=== PATIENT | male | born 1955 | race Two or more races ===

== ENCOUNTER 2017-01-29 21:38 | Emergency (ER) | payer OTHER ==
[~2017-01-29] VITALS: Ht 162.6 cm; Wt 91.2 kg
[~2017-01-29 21:38] MED LIST: TRAMADOL HCL100 M2 ORAL
[2017-01-29] MEDS ORDERED: Acetaminophen 500mg (ES) tab ORAL ONE (22:00)
[2017-01-30] MEDS ORDERED: TYLENOL EXTRA500 MG ORAL (00:01)
[2017-01-30] MEDS ORDERED: TRUFORM COMPRE1 EAC1 MC (00:01)
[2017-01-30 00:10] VITALS: BP 123/79
--- NOTE | 2017-01-30 00:14 | Emergency Room Report ---
History of Present Illness General Chief Complaint: Lower Extremity Injury Source: Patient Present Illness HPI 61-year-old male presents ED complaining of left ankle pain and swelling. States she's been having swelling in the ankle or some time now however he did have a mechanical trip and fall one week ago which made the swelling worse. Denies hitting his head or LOC. Pain is throbbing, 7/10, nonradiating. States pain but is able to bear weight. No other aggravating relieving factors. Denies any other associated symptoms Allergies: Coded Allergies: CODEINE (Verified Allergy, Unknown, 01/29/17) Uncoded Allergies: code (Allergy, Severe, Shortness of Breath, 01/21/14) swelling of tongue Patient History Past Medical History: DM, CVA/TIA Pertinent Family History: none Social History: Denies: smoking, alcohol use, drug use Immunizations: UTD Reviewed Nursing Documentation: PMH: Agreed, PSxH: Agreed Nursing Documentation-PMH Hx Diabetes: Yes - type 2 diabetes Hx Cerebrovascular Accident: Yes - 2012 Review of Systems All Other Systems: negative except mentioned in HPI Physical Exam Vital Signs Date Time Temp Pulse Resp B/P (MAP) Pulse Ox O2 Delivery O2 Flow Rate FiO2 01/29/17 21:42 98.1 63 20 123/79 Sp02 EP Interpretation: reviewed, normal General Appearance: no apparent distress, alert, GCS 15, non-toxic Head: normocephalic Eyes: bilateral eye normal inspection, bilateral eye PERRL ENT: normal ENT inspection Neck: normal inspection Respiratory: normal inspection Cardiovascular #1: normal inspection Gastrointestinal: normal inspection Rectal: deferred Genitourinary: no CVA tenderness Musculoskeletal: swelling - LLE Neurologic: alert, oriented x3, responsive, motor strength/tone normal, sensory intact, speech normal Psychiatric: normal inspection Skin: normal inspection Lymphatic: normal inspection Procedures Splinting Splinting : Consent: Verbal Pre-Made Type: JORGE LUIS wrap - L ankle Pre-Proc Neuro Vasc Exam: normal Post-Proc Neuro Vasc Exam: normal Patient Tolerated: Well Complications: None Medical Decision Making Diagnostic Impression: Primary Impression: Peripheral edema Additional Impression: Ankle sprain Qualified Codes: S93.402A - Sprain of unspecified ligament of left ankle, initial encounter ER Course Hospital Course 61-year-old M presents to ED complaining of L ankle swelling/ pain s/p trip and fall Differential diagnoses include: Fracture, dislocation, sprain, contusion Clinical course Patient placed on stretcher. After initial history and physical, I ordered pain medications and Xrays of L foot/ankle Xrays prelim read shows no acute fracture/dislocation. Doppler ultrasound shows no evidence of DVT placed in jorge luis wrap, given crutches Diagnosis - ankle sprain, peripheral edema Stable and discharged to home with prescription for Tylenol, compression stockings. apply ice, keep elevated. weight bear as tolerated. Followup with PMD. Return to ED if symptoms recur or worsen Other X-Ray Diagnostic Results Other X-Ray Diagnostic Results #1: X-Ray ordered: L foot # of Views/Limited Vs Complete: 3 View Indication: Pain EP Interpretation: Yes Interpretation: no dislocation, no fractures Impression: No acute disease Electronically Signed by: Electronically signed by Brennen Aldana MD Other X-Ray Diagnostic Results #2: X-Ray ordered: Left ankle # of Views/Limited Vs Complete: 3 View Indication: Pain EP Interpretation: Yes Interpretation: no dislocation, no fractures Impression: No acute disease Electronically Signed by: Electronically signed by Brennen Aldana MD CT/MRI/US Diagnostic Results CT/MRI/US Diagnostic Results : Imaging Test Ordered: venous doppler Impression no evidence of DVT in LLE Last Vital Signs Date Time Temp Pulse Resp B/P (MAP) Pulse Ox O2 Delivery O2 Flow Rate FiO2 01/29/17 21:42 98.1 63 20 123/79 Status: improved Disposition: HOME, SELF-CARE Condition: Stable Scripts Comp.stocking,Knee,Regular,Med (Truform Compression Stocking) 1 Each Each EACH , #1 Prov: BRENNEN ALDANA M.D. 01/30/17 Acetaminophen* (TYLENOL EXTRA STRENGTH*) 500 Mg Tablet 500 MG ORAL Q8H Y for Prn Headache/Temp > 101, #30 TAB 0 Refills Prov: BRENNEN ALDANA M.D. 01/30/17 Patient Instructions: Peripheral Edema BRENNEN ALDANA M.D. Jan 30, 2017 00:14
--- NOTE | 2017-01-30 10:36 | Diagnostic Imaging Report ---
Indication: Pain and swelling, status post fall Technique: 3 views left foot Comparison: none Findings: No acute fractures. No dislocations. Joint spaces are preserved. Small plantar and calcaneal spurs are noted Impression: No acute process
--- NOTE | 2017-01-30 10:37 | Diagnostic Imaging Report ---
Indication: Pain and swelling, status post fall Technique: 3 views of the left ankle Comparison: none Findings: There is soft tissue swelling medially and laterally. The joint spaces are preserved. There are small plantar and calcaneal spurs. No acute fractures. No dislocations. Impression: Soft tissue swelling No acute bony trauma
--- NOTE | 2017-02-02 11:01 | Diagnostic Imaging Report ---
APPROVED REPORT CPT Code: 99017 Present Symptoms Lower Extremity Pain: Left LEFT LEG: Venous imaging reveals a patent deep venous system. There is no evidence of thrombus within the femoral, popliteal or tibial segments. The greater saphenous vein is also within normal limits. Doppler indicates normal spontaneous flow within these segments.
== END 2017-01-30 00:09 | disposition home or self-care (01) ==
LOC: EMR 22:15
DX: R60.0 Localized edema (principal); S93.402A Sprain of unspecified ligament of left ankle, initial encounter; W01.0XXA Fall on same level from slipping, tripping and stumbling without subsequent striking against object, initial encounter; Z88.6 Allergy status to analgesic agent; E11.9 Type 2 diabetes mellitus without complications; Z86.73 Personal history of transient ischemic attack (TIA), and cerebral infarction without residual deficits
CPT/HCPCS: 93971; 99284

== ENCOUNTER 2018-05-28 23:02 | Emergency (ER) | payer SELFPAY ==
[~2018-05-28] VITALS: Ht 165.1 cm; Wt 90.7 kg
[~2018-05-28 23:02] MED LIST changes: +TRUFORM COMPRE1 EAC1 MC; +TYLENOL EXTRA500 MG ORAL
[2018-05-28] MEDS ORDERED: METFORMIN HCL500 M1 ORAL (23:17)
[2018-05-28] MEDS ORDERED: FLOMAX0.4 MG ORAL (23:17)
[2018-05-28] MEDS ORDERED: JANUVIA25 MG ORAL (23:17)
[2018-05-28] MEDS ORDERED: ATORVASTATIN CA10 MG ORAL (23:17)
[2018-05-28 23:25] VITALS: BP 174/86
--- NOTE | 2018-05-28 23:25 | NUR ---
ED Nurse Note: Patient walked to ER with his c/o abdominal pain, deny N/V/D. AAO x4, VSS at this time. will continuet o monitor.
--- NOTE | 2018-05-28 23:29 | Emergency Room Report ---
History of Present Illness General Chief Complaint: Abdominal Pain Source: Patient Present Illness HPI This is a 62-year-old male with history of high blood pressure, diabetes and hyperlipidemia. He presents with chief complaint of left lower quadrant pain. Onset this afternoon. Increasing worsen the last hour. No nausea no vomiting. Anus 9 out of 10. No radiation. No diarrhea. No fever. No hematuria. Worse with movement. Allergies: Coded Allergies: CODEINE (Verified Allergy, Unknown, 01/29/17) Uncoded Allergies: code (Allergy, Severe, Shortness of Breath, 01/21/14) swelling of tongue Patient History Past Medical History: see triage record, old chart reviewed, DM, HTN Past Surgical History: other Pertinent Family History: none Social History: Denies: smoking Immunizations: other Reviewed Nursing Documentation: PMH: Agreed; PSxH: Agreed Nursing Documentation-PMH Past Medical History: No History, Except For Hx Diabetes: Yes - type 2 diabetes Hx Cerebrovascular Accident: Yes - 2012 Review of Systems Eye: Denies: eye pain, blurred vision ENT: Denies: ear pain, nose congestion, throat swelling Respiratory: Denies: cough, shortness of breath Cardiovascular: Denies: chest pain, palpitations Gastrointestinal: Reports: abdominal pain; Denies: diarrhea, nausea, vomiting Musculoskeletal: Denies: back pain, joint pain Skin: Denies: rash Neurological: Denies: headache, numbness Endocrine: Denies: increased thirst, increased urine Hematologic/Lymphatic: Denies: easy bruising All Other Systems: negative except mentioned in HPI Physical Exam Vital Signs Date Time Temp Pulse Resp B/P (MAP) Pulse Ox O2 Delivery O2 Flow Rate FiO2 05/28/18 23:12 97.9 53 22 174/86 100 Room Air vitals with high blood pressure Sp02 EP Interpretation: reviewed, normal General Appearance: well appearing, no apparent distress, alert Head: normocephalic, atraumatic Eyes: bilateral eye PERRL, bilateral eye EOMI ENT: hearing grossly normal, normal pharynx Neck: full range of motion, supple, no meningismus Respiratory: chest non-tender, lungs clear, normal breath sounds Cardiovascular #1: regular rate, rhythm, no murmur Gastrointestinal: normal bowel sounds, no mass, no organomegaly, no bruit, non- distended, tenderness - Left lower quadrant Musculoskeletal: back normal, gait/station normal, normal range of motion Psychiatric: mood/affect normal Skin: warm/dry Medical Decision Making Diagnostic Impression: Primary Impression: Ureteral calculus, left Additional Impression: Renal insufficiency ER Course Patient presents with left flank pain and has ureteral stone. He does have some hydronephrosis. Is moderate amount of perinephric stranding. No infection on urinalysis however. Initially he was in a lot of pain and was to be admitted for pain control and urology consult. He said his pain is better wants to go home. We'll discharge home. Lab Results Impression labs with elevated creat CT/MRI/US Diagnostic Results CT/MRI/US Diagnostic Results : Imaging Test Ordered: CT abdomen and pelvis Impression read by radiologist. 5 mm obstructing left mid ureteral stone. Mild hydroureter and perinephric stranding Last Vital Signs Date Time Temp Pulse Resp B/P (MAP) Pulse Ox O2 Delivery O2 Flow Rate FiO2 05/28/18 23:12 97.9 53 22 174/86 100 Room Air Status: improved Disposition: HOME, SELF-CARE Condition: Stable Scripts Tamsulosin HCl (Flomax) 0.4 Mg Cap.er.24h 0.4 MG ORAL DAILY, #30 CAP Prov: Jerson Segura MD 05/29/18 Hydrocodone/Acetaminophen 5-325* (HYDROCODONE/ACETAMINOPHEN 5-325*) 1 Each Tablet 1 TAB ORAL Q6H PRN for For Pain, #20 TAB 0 Refills Prov: Jerson Segura MD 05/29/18 Additional Instructions: Increase fluids. Follow-up with your DrIngris in 2-3 days. You will need a referral to see a urologist. Return for fever, increasing pain, nausea and vomiting or any concern. Jerson Segura MD May 28, 2018 23:29
[2018-05-28] MEDS ORDERED: HYDROmorphone 1mg/ml Carpuject IVP ONE (23:30)
[2018-05-29 00:02] LABS: EOSINOPHILS % (AUTO) 1.5 % (0.0-3.0); HEMATOCRIT 45.8 % (42.0-52.0); HEMOGLOBIN 15.4 G/DL (14.2-18.0); LYMPHOCYTES % (AUTO) 18.5 % (20.0-45.0); MEAN CORPUSCULAR VOLUME 95 FL (80-99); MONOCYTES % (AUTO) 4.5 % (1.0-10.0); NEUTROPHILS % (AUTO) 74.5 % (45.0-75.0); PLATELET COUNT 314 K/UL (150-450); RED BLOOD COUNT 4.83 M/UL (4.70-6.10); RED CELL DISTRIBUTION WIDTH 11.1 % (11.6-14.8); WHITE BLOOD COUNT 11.2 K/UL (4.8-10.8)
[2018-05-29 00:13] LABS: ANION GAP 9 mmol/L (5-15); BLOOD UREA NITROGEN 29 mg/dL (7-18); CALCIUM 9.1 MG/DL (8.5-10.1); CARBON DIOXIDE 28 MMOL/L (21-32); CHLORIDE 104 MMOL/L (98-107); CREATININE 1.6 MG/DL (0.55-1.30); SODIUM 141 MMOL/L (136-145)
[2018-05-29 00:17] LABS: ALANINE AMINOTRANSFERASE 32 U/L (12-78); ALBUMIN 4.1 G/DL (3.4-5.0); ALBUMIN/GLOBULIN RATIO 1.1 (1.0-2.7); ALKALINE PHOSPHATASE 55 U/L (46-116); ASPARTATE AMINO TRANSFERASE 18 U/L (15-37); BILIRUBIN,TOTAL 0.7 MG/DL (0.2-1.0)
[2018-05-29 00:21] LABS: APPEARANCE,URINE CLEAR; BILIRUBIN, URINE NEGATIVE (NEGATIVE); GLUCOSE, URINE (UA) 1+ (NEGATIVE); KETONES,URINE NEGATIVE (NEGATIVE); LEUKOCYTE ESTERASE ,URINE 1+ (NEGATIVE); NITRITE,URINE NEGATIVE (NEGATIVE); PH,URINE 5 (4.5-8.0); PROTEIN,URINE 1+ (NEGATIVE); UROBILINOGEN,URINE NORMAL MG/DL (0.0-1.0)
[2018-05-29 00:22] LABS: COLOR,URINE YELLOW
[2018-05-29] MEDS ORDERED: HYDROmorphone 1mg/ml Carpuject IVP ONE (00:45)
[2018-05-29] MEDS ORDERED: Morphine Sulfate 4mg/ml Inj (IV USE ONLY) IVP ONE (01:15)
[2018-05-29] MEDS ORDERED: FLOMAX0.4 MG ORAL (01:46)
[2018-05-29] MEDS ORDERED: HYDROCODON-ACE1 EA15 ORAL (01:46)
[2018-05-29] MEDS ORDERED: CEPHALEXIN500 MG ORAL (01:48)
[2018-05-29 01:55] VITALS: BP 154/86
--- NOTE | 2018-05-29 01:56 | NUR ---
ED Nurse Note: pt cleared to be d/c per ERMD, pt discharge and aftercare instruction provided w/ prescription, pt education done via discussion and handout, pt advised to follow up with pcp or return to ed if sx worsen or new sx develop, pt verbailzed understanding and agrees with plan, vss, ambulatory w/ steady gait, iv DC and ID band removed, pt accompanied by spouse member, left w/ all belongings.
--- NOTE | 2018-05-29 12:00 | Diagnostic Imaging Report ---
Indication: Abdominal pain for 2 days Technique: Spiral acquisitions obtained through the abdomen and pelvis. No oral contrast utilized, per emergency room physician request No IV contrast utilized, per referring physician request.. Multiplanar reconstructions were generated. Total dose length product 989.95 mGycm. CTDIvol(s) 17.93 mGy. Dose reduction achieved using automated exposure control Comparison: None Findings: There is a 5 mm calculus in the proximal left ureter. This results in mild hydronephrosis and proximal hydroureter, considerable perinephric and periureteral fat stranding. No intrarenal calculi are demonstrated. No right renal or ureteral calculi, right hydronephrosis or hydroureter demonstrated. No distal left ureteral calculus demonstrated. Lack of IV contrast limits assessment of the renal parenchyma. Multiple cysts are seen in the right kidney. The bladder demonstrates mild wall thickening. Lack of IV contrast limits assessment of the other solid organs. The liver, gallbladder, bile ducts, pancreas, spleen, adrenals are unremarkable. No retroperitoneal or mesenteric mass or adenopathy. The prostate is prominent. No pelvic mass or adenopathy. There is a right inguinal hernia which contains only fat. No evidence of diverticulosis or diverticulitis. The appendix is normal. No small bowel distention. No free or loculated intraperitoneal gas or fluid. There is a small fat-containing umbilical hernia. The distal esophagus, stomach, duodenum are unremarkable. The included lung bases demonstrate groundglass opacity as well as some atelectasis and possibly consolidation. Impression: Positive for 5 mm proximal left ureteral calculus, resulting in hydronephrosis, hydroureter, and perinephric and periureteral fat stranding Bilateral pulmonary parenchymal groundglass opacities and atelectatic changes and possible consolidation Other findings as noted, including multiple right renal cysts, prominent prostate, fat-containing umbilical and right inguinal hernias This agrees with the preliminary interpretation provided overnight by [employer] teleradiology service. The CT scanner at [facility] is accredited by the [employer] and the scans are performed using protocols designed to limit radiation exposure to as low as reasonably achievable to attain images of sufficient resolution adequate for diagnostic evaluation.
[2018-05-29] MEDS ORDERED: IBUPROFEN600 MG ORAL (18:15)
== END 2018-05-29 01:55 | disposition home or self-care (01) ==
LOC: EMR 23:15
DX: N20.1 Calculus of ureter (principal); N28.9 Disorder of kidney and ureter, unspecified; E11.9 Type 2 diabetes mellitus without complications; E78.5 Hyperlipidemia, unspecified; Z88.6 Allergy status to analgesic agent; Z86.73 Personal history of transient ischemic attack (TIA), and cerebral infarction without residual deficits
CPT/HCPCS: 36415; 74176; 80053; 81003; 83690; 85025; 96361; 96374; 96375; 96376; 99284; J1170; J2270; J2405

== ENCOUNTER 2018-05-29 17:14 | Inpatient (IN) | payer SELFPAY ==
[~2018-05-29] VITALS: Ht 162.6 cm; Wt 90.3 kg
[~2018-05-29 17:14] MED LIST changes: +ATORVASTATIN CA10 MG ORAL; +CEPHALEXIN500 MG ORAL; +FLOMAX0.4 MG ORAL; +HYDROCODON-ACE1 EA15 ORAL; +JANUVIA25 MG ORAL; +METFORMIN HCL500 M1 ORAL
--- NOTE | 2018-05-29 17:25 | NUR ---
ED Nurse Note: PT WALKED IN TO ER TODAY FROM HOME. AOX4. PT C/O LEFT SIDED ABDOMINAL PAIN, 10/10, NAUSEA AND TWO EPISODES OF VOMITING X THIS AM. PT WAS SEEN LAST NIGHT AT [facility] AND WAS TOLD HE NEEDS TO FOLLOW UP WITH A UROLOGIST. PT STATES HE WAS UNABLE TO MAKE AN APPT WITH UROLOGIST.
[2018-05-29 17:28] VITALS: BP 142/76
[2018-05-29] MEDS ORDERED: Ketorolac 30mg Inj IV ONE (17:30)
[2018-05-29 17:51] LABS: BASOPHILS % (AUTO) 0.8 % (0.0-2.0); EOSINOPHILS % (AUTO) 0.2 % (0.0-3.0); HEMATOCRIT 42.8 % (42.0-52.0); HEMOGLOBIN 14.2 G/DL (14.2-18.0); LYMPHOCYTES % (AUTO) 12.7 % (20.0-45.0); MEAN CORPUSCULAR VOLUME 94 FL (80-99); MONOCYTES % (AUTO) 4.4 % (1.0-10.0); NEUTROPHILS % (AUTO) 81.9 % (45.0-75.0); PLATELET COUNT 293 K/UL (150-450); RED BLOOD COUNT 4.57 M/UL (4.70-6.10); RED CELL DISTRIBUTION WIDTH 10.6 % (11.6-14.8); WHITE BLOOD COUNT 13.6 K/UL (4.8-10.8)
[2018-05-29] MEDS ORDERED: HYDROmorphone 1mg/ml Carpuject IVP ONE (18:00)
[2018-05-29 18:11] LABS: ANION GAP 10 mmol/L (5-15); BLOOD UREA NITROGEN 27 mg/dL (7-18); CALCIUM 8.7 MG/DL (8.5-10.1); CARBON DIOXIDE 27 MMOL/L (21-32); CHLORIDE 104 MMOL/L (98-107); CREATININE 1.6 MG/DL (0.55-1.30); POTASSIUM 4.5 MMOL/L (3.5-5.1); SODIUM 140 MMOL/L (136-145)
[2018-05-29 18:15] LABS: ALANINE AMINOTRANSFERASE 26 U/L (12-78); ALBUMIN 3.7 G/DL (3.4-5.0); ALKALINE PHOSPHATASE 47 U/L (46-116); ASPARTATE AMINO TRANSFERASE 14 U/L (15-37); BILIRUBIN,TOTAL 0.9 MG/DL (0.2-1.0)
[2018-05-29] MEDS ORDERED: IBUPROFEN600 MG ORAL (18:15)
[2018-05-29 18:49] LABS: APPEARANCE,URINE CLEAR; BILIRUBIN, URINE NEGATIVE (NEGATIVE); COLOR,URINE PALE YELLOW; GLUCOSE, URINE (UA) 2+ (NEGATIVE); KETONES,URINE NEGATIVE (NEGATIVE); LEUKOCYTE ESTERASE ,URINE NEGATIVE (NEGATIVE); NITRITE,URINE NEGATIVE (NEGATIVE); PH,URINE 5 (4.5-8.0); PROTEIN,URINE NEGATIVE (NEGATIVE); UROBILINOGEN,URINE NORMAL MG/DL (0.0-1.0)
--- NOTE | 2018-05-29 19:08 | NUR ---
ED Nurse Note: REPORT GIVEN TO JAMIA ZAPIEN.
[2018-05-29] MEDS ORDERED: Tamsulosin 0.4mg cap ORAL ONE (19:15)
[2018-05-29] MEDS ORDERED: Morphine Sulfate 4mg/ml Inj (IV USE ONLY) IVP ONE (19:15)
[2018-05-29 19:43] VITALS: BP 147/78
--- NOTE | 2018-05-29 21:05 | NUR ---
ED Nurse Note: TELEPHONE REPORT GIVEN TO JAMIA GALINDO
[2018-05-29 21:19] VITALS: BP 145/78
--- NOTE | 2018-05-29 21:24 | Emergency Room Report ---
History of Present Illness General Chief Complaint: Abdominal Pain Source: Patient Present Illness HPI Patient was here yesterday with similar complaints Presents back with repeat pain increased in nature Persistent nausea vomiting unable to take any medications Denies any chest pain or shortness of breath pain is localized to the left flank and mid lower abdominal region Denies any dysuria radiation as noted above pain is 10 out of 10 patient comfortable Allergies: Coded Allergies: CODEINE (Verified Allergy, Unknown, 01/29/17) Uncoded Allergies: code (Allergy, Severe, Shortness of Breath, 01/21/14) swelling of tongue Patient History Past Medical History: see triage record Pertinent Family History: none Reviewed Nursing Documentation: PMH: Agreed; PSxH: Agreed Nursing Documentation-PMH Past Medical History: No History, Except For Hx Diabetes: Yes - type 2 diabetes Hx Cerebrovascular Accident: Yes - 2012 Review of Systems All Other Systems: negative except mentioned in HPI Physical Exam Vital Signs Date Time Temp Pulse Resp B/P (MAP) Pulse Ox O2 Delivery O2 Flow Rate FiO2 05/29/18 17:18 97.9 65 20 149/78 95 Room Air Sp02 EP Interpretation: reviewed, normal General Appearance: moderate distress Head: normocephalic, atraumatic Eyes: bilateral eye PERRL, bilateral eye EOMI ENT: hearing grossly normal, normal pharynx, TMs + canals normal, uvula midline Neck: full range of motion, supple, no meningismus, no bony tend Respiratory: lungs clear, normal breath sounds, no rhonchi, no respiratory distress, no retraction, no accessory muscle use Cardiovascular #1: normal peripheral pulses, regular rate, rhythm, no edema, no gallop, no JVD, no murmur Gastrointestinal: normal bowel sounds, non tender, soft, no mass, no organomegaly, non-distended, no guarding, no hernia, no pulsatile mass, no rebound Genitourinary: no CVA tenderness Musculoskeletal: normal inspection Neurologic: oriented x3, responsive, wire setter III-XII nml as tested, motor strength/ tone normal, sensory intact Psychiatric: mood/affect normal Skin: normal color, no rash, warm/dry, palpation normal Lymphatic: normal inspection, no adenopathy Medical Decision Making Diagnostic Impression: Primary Impression: Obstructive uropathy ER Course With the history exam and presentation, multiple differentials considered, including but not limited to appendicitis, gastritis, cholecystitis, diverticulitis Given the patient's repeat presentation objective nature of the kidney stone Patient had been recommended for admission yesterday Now presents with increased pain After repeat medications has done better however will require further inpatient care Urology consulted Labs Test 05/29/18 17:37 05/29/18 18:18 White Blood Count 13.6 K/UL (4.8-10.8) Red Blood Count 4.57 M/UL (4.70-6.10) Hemoglobin 14.2 G/DL (14.2-18.0) Hematocrit 42.8 % (42.0-52.0) Mean Corpuscular Volume 94 FL (80-99) Mean Corpuscular Hemoglobin 31.1 PG (27.0-31.0) Mean Corpuscular Hemoglobin Concent 33.2 G/DL (32.0-36.0) Red Cell Distribution Width 10.6 % (11.6-14.8) Platelet Count 293 K/UL (150-450) Mean Platelet Volume 5.3 FL (6.5-10.1) Neutrophils (%) (Auto) 81.9 % (45.0-75.0) Lymphocytes (%) (Auto) 12.7 % (20.0-45.0) Monocytes (%) (Auto) 4.4 % (1.0-10.0) Eosinophils (%) (Auto) 0.2 % (0.0-3.0) Basophils (%) (Auto) 0.8 % (0.0-2.0) Sodium Level 140 MMOL/L (136-145) Potassium Level 4.5 MMOL/L (3.5-5.1) Chloride Level 104 MMOL/L (98-107) Carbon Dioxide Level 27 MMOL/L (21-32) Anion Gap 10 mmol/L (5-15) Blood Urea Nitrogen 27 mg/dL (7-18) Creatinine 1.6 MG/DL (0.55-1.30) Estimat Glomerular Filtration Rate 43.9 mL/min (>60) Glucose Level 206 MG/DL (74-106) Calcium Level 8.7 MG/DL (8.5-10.1) Total Bilirubin 0.9 MG/DL (0.2-1.0) Aspartate Amino Transf (AST/SGOT) 14 U/L (15-37) Alanine Aminotransferase (ALT/SGPT) 26 U/L (12-78) Alkaline Phosphatase 47 U/L (46-116) Total Protein 7.3 G/DL (6.4-8.2) Albumin 3.7 G/DL (3.4-5.0) Globulin 3.6 g/dL Albumin/Globulin Ratio 1.0 (1.0-2.7) Lipase 110 U/L (73-393) Urine Color Pale yellow Urine Appearance Clear Urine pH 5 (4.5-8.0) Urine Specific [place] 1.015 (1.005-1.035) Urine Protein Negative (NEGATIVE) Urine Glucose (UA) 2+ (NEGATIVE) Urine Ketones Negative (NEGATIVE) Urine Blood 1+ (NEGATIVE) Urine Nitrite Negative (NEGATIVE) Urine Bilirubin Negative (NEGATIVE) Urine Urobilinogen Normal MG/DL (0.0-1.0) Urine Leukocyte Esterase Negative (NEGATIVE) Urine RBC 0-2 /HPF (0 - 0) Urine WBC 0 /HPF (0 - 0) Urine Squamous Epithelial Cells None /LPF (NONE/OCC) Urine Bacteria None /HPF (NONE) CT/MRI/US Diagnostic Results CT/MRI/US Diagnostic Results : Impression CT abdomen pelvis from 05/28/2018:Impression: Positive for 5 mm proximal left ureteral calculus, resulting in hydronephrosis, hydroureter, and perinephric and periureteral fat stranding Bilateral pulmonary parenchymal groundglass opacities and atelectatic changes and possible consolidation Other findings as noted, including multiple right renal cysts, prominent prostate, fat-containing umbilical and right inguinal hernias This agrees with the preliminary interpretation provided overnight by [employer] teleradiology service. Last Vital Signs Date Time Temp Pulse Resp B/P (MAP) Pulse Ox O2 Delivery O2 Flow Rate FiO2 05/29/18 21:19 98.2 90 18 145/78 100 Room Air Status: improved Disposition: ADMITTED INPATIENT Condition: Serious Referrals: ASAEL BARTON (PCP) Riley Edouard DO May 29, 2018 21:24
[2018-05-29] MEDS ORDERED: DiphenhydrAMINE 50mg/ml Inj IVP ONE (21:45)
[2018-05-29] MEDS ORDERED: LORazepam Inj 2mg/ml 1ml IV ONE (21:45)
--- NOTE | 2018-05-29 21:55 | NUR ---
ED Nurse Note: pt sent to ms unit with rosa del angel. pt is aox4, deneis pain at the moment. pt skin is intact. at bedisde. all belongings given to pt and wallet given to . pt shows no signs of distress
--- NOTE | 2018-05-29 22:00 | NUR ---
NURSE NOTES: Received patient from ER, admit from home, patient is in room 421, is at bedside, patient speaks Farsi, a little Polish, admit orders are obtained from Dr. Alfred. Oriented patient and to the room, call light is within reach, bed is in low position, locked and alarm is on. Belongings were accounted for and form has been signed. Will continue to monitor for safety and comfort.
[2018-05-29] MEDS ORDERED: Morphine Sulfate 2mg/ml Inj(IV/IM USE ONLY) IVP PRN (22:30)
[2018-05-30] VITALS (13 sets, daily range): BP systolic 103–147; BP diastolic 56–79
[2018-05-30 07:10] LABS: BASOPHILS % (AUTO) 0.5 % (0.0-2.0); EOSINOPHILS % (AUTO) 1.5 % (0.0-3.0); HEMATOCRIT 38.2 % (42.0-52.0); HEMOGLOBIN 12.9 G/DL (14.2-18.0); MEAN CORPUSCULAR VOLUME 96 FL (80-99); MONOCYTES % (AUTO) 5.4 % (1.0-10.0); NEUTROPHILS % (AUTO) 68.7 % (45.0-75.0); PLATELET COUNT 250 K/UL (150-450); RED BLOOD COUNT 3.99 M/UL (4.70-6.10); RED CELL DISTRIBUTION WIDTH 11.3 % (11.6-14.8)
[2018-05-30 07:22] LABS: ALANINE AMINOTRANSFERASE 21 U/L (12-78); ALBUMIN/GLOBULIN RATIO 0.9 (1.0-2.7); ALKALINE PHOSPHATASE 42 U/L (46-116); ANION GAP 6 mmol/L (5-15); ASPARTATE AMINO TRANSFERASE 12 U/L (15-37); BILIRUBIN,TOTAL 0.9 MG/DL (0.2-1.0); BLOOD UREA NITROGEN 25 mg/dL (7-18); CALCIUM 8.1 MG/DL (8.5-10.1); CARBON DIOXIDE 28 MMOL/L (21-32); CHLORIDE 107 MMOL/L (98-107); CREATININE 1.5 MG/DL (0.55-1.30); POTASSIUM 4.2 MMOL/L (3.5-5.1); SODIUM 141 MMOL/L (136-145)
--- NOTE | 2018-05-30 07:30 | NUR ---
HAND-OFF: Report given to Isac BLANDON.
--- NOTE | 2018-05-30 07:31 | NUR ---
NURSE NOTES: Received patient awake alert and oriented, lying comfortably in bed. IV site at right antecubital, 20 gauge, infusing 1/2 NS @ 60ml/hour. Bed at lowest level with 3 side rails up. Call light within reach. In no apparent distress at this time. Will continue to monitor.
--- NOTE | 2018-05-30 08:58 | Consultation ---
History of Present Illness General Date patient seen: May 30, 2018 Present Illness Allergies: Coded Allergies: CODEINE (Verified Allergy, Unknown, 01/29/17) Uncoded Allergies: code (Allergy, Severe, Shortness of Breath, 01/21/14) swelling of tongue Medication History Scheduled Atorvastatin Calcium* (Lipitor*), Unknown Dose ORAL BEDTIME, (Reported) Metformin Hcl* (Metformin Hcl*), Unknown Dose ORAL TWICE A DAY, (Reported) Sitagliptin* (Januvia*), Unknown Dose ORAL DAILY, (Reported) Tamsulosin HCl (Flomax), 0.4 MG ORAL DAILY, (Reported) Miscellaneous Medications Ibuprofen* (Motrin*), Unknown Dose ORAL, (Reported) Discontinued Medications Acetaminophen* (Tylenol Extra Strength*), 500 MG ORAL Q8H PRN for Prn Headache/ Temp > 101 Discontinued Reason: Therapy completed Cephalexin* (Keflex*), 500 MG ORAL TID Discontinued Reason: Therapy completed Hydrocodone/Acetaminophen 5-325* (Hydrocodone/Acetaminophen 5-325*), 1 TAB ORAL Q6H PRN for For Pain Discontinued Reason: Therapy completed Tramadol Hcl (Tramadol Hcl), 100 MG ORAL DAILY, (Reported) Discontinued Reason: Therapy completed [unknown], (Reported) Discontinued Reason: Therapy completed Durable Medical Equipment Comp.stocking,Knee,Regular,Med (Truform Compression Stocking), EACH , (DME) Patient History Healthcare decision maker Resuscitation status Full Code Advanced Directive on File No Physical Exam Last 24 Hour Vital Signs Date Time Temp Pulse Resp B/P (MAP) Pulse Ox O2 Delivery O2 Flow Rate FiO2 05/30/18 06:56 98.0 05/30/18 04:08 98.0 60 18 103/59 (74) 05/30/18 01:00 97.0 60 18 103/57 (72) 05/29/18 22:10 Room Air 05/29/18 21:55 98.2 90 18 145/78 100 Room Air 05/29/18 21:19 98.2 90 18 145/78 100 Room Air 05/29/18 19:43 98.1 05/29/18 19:43 98.1 88 18 147/78 98 Room Air 05/29/18 17:28 68 18 Room Air 05/29/18 17:28 98.1 68 18 142/76 98 Room Air 05/29/18 17:18 97.9 65 20 149/78 95 Room Air Intake and Output 05/29/18 05/30/18 19:00 07:00 Intake Total 180 ml Balance 180 ml Intake IV Total 180 ml # Voids 1 1 Laboratory Tests Test 05/29/18 17:37 05/29/18 18:18 05/30/18 05:50 White Blood Count 13.6 K/UL (4.8-10.8) H 10.0 K/UL (4.8-10.8) Red Blood Count 4.57 M/UL (4.70-6.10) L 3.99 M/UL (4.70-6.10) L Hemoglobin 14.2 G/DL (14.2-18.0) 12.9 G/DL (14.2-18.0) L Hematocrit 42.8 % (42.0-52.0) 38.2 % (42.0-52.0) L Mean Corpuscular Volume 94 FL (80-99) 96 FL (80-99) Mean Corpuscular Hemoglobin 31.1 PG (27.0-31.0) H 32.3 PG (27.0-31.0) H Mean Corpuscular Hemoglobin Concent 33.2 G/DL (32.0-36.0) 33.8 G/DL (32.0-36.0) Red Cell Distribution Width 10.6 % (11.6-14.8) L 11.3 % (11.6-14.8) L Platelet Count 293 K/UL (150-450) 250 K/UL (150-450) Mean Platelet Volume 5.3 FL (6.5-10.1) L 5.9 FL (6.5-10.1) L Neutrophils (%) (Auto) 81.9 % (45.0-75.0) H 68.7 % (45.0-75.0) Lymphocytes (%) (Auto) 12.7 % (20.0-45.0) L 24.0 % (20.0-45.0) Monocytes (%) (Auto) 4.4 % (1.0-10.0) 5.4 % (1.0-10.0) Eosinophils (%) (Auto) 0.2 % (0.0-3.0) 1.5 % (0.0-3.0) Basophils (%) (Auto) 0.8 % (0.0-2.0) 0.5 % (0.0-2.0) Sodium Level 140 MMOL/L (136-145) 141 MMOL/L (136-145) Potassium Level 4.5 MMOL/L (3.5-5.1) 4.2 MMOL/L (3.5-5.1) Chloride Level 104 MMOL/L (98-107) 107 MMOL/L (98-107) Carbon Dioxide Level 27 MMOL/L (21-32) 28 MMOL/L (21-32) Anion Gap 10 mmol/L (5-15) 6 mmol/L (5-15) Blood Urea Nitrogen 27 mg/dL (7-18) H 25 mg/dL (7-18) H Creatinine 1.6 MG/DL (0.55-1.30) H 1.5 MG/DL (0.55-1.30) H Estimat Glomerular Filtration Rate 43.9 mL/min (>60) 47.3 mL/min (>60) Glucose Level 206 MG/DL (74-106) H 121 MG/DL (74-106) H Calcium Level 8.7 MG/DL (8.5-10.1) 8.1 MG/DL (8.5-10.1) L Total Bilirubin 0.9 MG/DL (0.2-1.0) 0.9 MG/DL (0.2-1.0) Aspartate Amino Transf (AST/SGOT) 14 U/L (15-37) L 12 U/L (15-37) L Alanine Aminotransferase (ALT/SGPT) 26 U/L (12-78) 21 U/L (12-78) Alkaline Phosphatase 47 U/L (46-116) 42 U/L (46-116) L Total Protein 7.3 G/DL (6.4-8.2) 6.2 G/DL (6.4-8.2) L Albumin 3.7 G/DL (3.4-5.0) 3.0 G/DL (3.4-5.0) L Globulin 3.6 g/dL 3.2 g/dL Albumin/Globulin Ratio 1.0 (1.0-2.7) 0.9 (1.0-2.7) L Lipase 110 U/L (73-393) Urine Color Pale yellow Urine Appearance Clear Urine pH 5 (4.5-8.0) Urine Specific [place] 1.015 (1.005-1.035) Urine Protein Negative (NEGATIVE) Urine Glucose (UA) 2+ (NEGATIVE) H Urine Ketones Negative (NEGATIVE) Urine Blood 1+ (NEGATIVE) H Urine Nitrite Negative (NEGATIVE) Urine Bilirubin Negative (NEGATIVE) Urine Urobilinogen Normal MG/DL (0.0-1.0) Urine Leukocyte Esterase Negative (NEGATIVE) Urine RBC 0-2 /HPF (0 - 0) H Urine WBC 0 /HPF (0 - 0) Urine Squamous Epithelial Cells None /LPF (NONE/OCC) Urine Bacteria None /HPF (NONE) Height (Feet): 5 Height (Inches): 4.00 Weight (Pounds): 200 Medications Current Medications Medications (Trade) Dose Ordered Sig/Billy Route PRN Reason Start Time Stop Time Status Last Admin Dose Admin Dextrose (Dextrose 50%) 50 ml PRN PRN IV Hypoglycemia 05/29/18 22:30 06/28/18 22:29 Morphine Sulfate (Morphine Sulfate) 2 mg Q4H PRN IVP For Pain 05/29/18 22:30 06/05/18 22:29 05/30/18 06:18 Sodium Chloride 1,000 ml @ 60 mls/hr [id number] IV 05/29/18 22:45 06/28/18 22:44 05/29/18 23:07 Assessment/Plan Assessment/Plan (1) Left flank pain (2) Left Ureteral stone (3) Hydronephrosis seen dictated Aristides Grullon May 30, 2018 08:58
[2018-05-30] MEDS ORDERED: HYDROmorphone 1mg/ml Carpuject ONE (09:13)
[2018-05-30] MEDS: HYDROmorphone 1mg/ml Carpuject IVP PRN ×2 (09:18→21:09)
--- NOTE | 2018-05-30 10:50 | NUR ---
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
--- NOTE | 2018-05-30 11:17 | Pre-Procedure Note/Attestation ---
Pre-Procedure Note/Attestation Complete Prior to Procedure Planned Procedure: left Procedure Narrative: RIRS laser stone fragmentation stent placement left Indications for Procedure Pre-Operative Diagnosis: left ureteral stone Attestation I attest that I discussed the nature of the procedure; its benefits; risks and complications; and alternatives (and the risks and benefits of such alternatives ), prior to the procedure, with the patient (or the patient's legal sales representative sales manager). I attest that, if there was a reasonable possibility of needing a blood transfusion, the patient (or the patient's legal sales representative sales manager) was given the [facility] standardized written summary, pursuant to the Joaquín Remi Blood Safety Act ([place] Health and Safety Code # 1645, as amended). I attest that I re-evaluated the patient just prior to the surgery and that there has been no change in the patient's H&P, except as documented below: Elvis Johnson MD May 30, 2018 11:17
[2018-05-30] MEDS ORDERED: ceFAZolin sod 2 GM in NS 55 ML IVP ONE (11:30)
[2018-05-30] MEDS ORDERED: ceFAZolin 2gm/50ml Premix 50 ML IV ONE (11:30)
[2018-05-30] MEDS ORDERED: Midazolam 2mg/2ml Inj ONE (12:23)
[2018-05-30] MEDS ORDERED: fentaNYL 100 mcg/2 mL IV ONE (12:23)
[2018-05-30] MEDS ORDERED: Propofol 200mg/20ml IV ONE (12:25)
[2018-05-30] MEDS ORDERED: Lidocaine 1% MPF 10mg/ml 5ml ONE ×2 (12:25→14:23)
[2018-05-30] MEDS ORDERED: Hydromorphone 0.5mg/0.5ml inj IVP SCH (12:45)
--- NOTE | 2018-05-30 12:56 | Pre-Procedure Note/Attestation ---
Pre-Procedure Note/Attestation Complete Prior to Procedure Planned Procedure: left Procedure Narrative: left RIRS laser stone removal stent placement Indications for Procedure Pre-Operative Diagnosis: left ureteral stone Attestation I attest that I discussed the nature of the procedure; its benefits; risks and complications; and alternatives (and the risks and benefits of such alternatives ), prior to the procedure, with the patient (or the patient's legal shared services representative). I attest that, if there was a reasonable possibility of needing a blood transfusion, the patient (or the patient's legal shared services representative) was given the [facility] standardized written summary, pursuant to the Joaquín Remi Blood Safety Act ([place] Health and Safety Code # 1645, as amended). I attest that I re-evaluated the patient just prior to the surgery and that there has been no change in the patient's H&P, except as documented below: Elvis Johnson MD May 30, 2018 12:56
[2018-05-30] MEDS ORDERED: Iothalamate Meglumine 60% 30ML INJ ONE (12:58)
[2018-05-30] MEDS ORDERED: LR 1000ml ONE (13:40)
[2018-05-30] MEDS ORDERED: NS Irrig 4000ml IRRIG ONE (14:00)
--- NOTE | 2018-05-30 14:21 | Anethesia Preoperative Eval ---
Anesthesia Pre-op PMH/ROS General Date of Evaluation: May 30, 2018 Time of Evaluation: 13:41 Anesthesiologist: Manjeet ASA Score: ASA 3 Mallampati Score Class I : Soft palate, uvula, fauces, pillars visible Class II: Soft palate, uvula, fauces visible Class III: Soft palate, base of uvula visible Class IV: Only hard plate visible Mallampati Classification: Class III Surgeon: Elizabeth Diagnosis: Abd Pain Surgical Procedure: L Ureteroscopy, L Uretreral Stone Removal and Stent Placement Anesthesia History: none Family History: no anesthesia problems Allergies: Coded Allergies: CODEINE (Verified Allergy, Unknown, 01/29/17) Uncoded Allergies: code (Allergy, Severe, Shortness of Breath, 01/21/14) swelling of tongue Medications: see eMAR Patient NPO?: Yes NPO Date: May 30, 2018 NPO Time: 0000 Past Medical History Cardiovascular: Reports: HTN Neurologic/Psychiatric: Reports: CVA Endocrine: Reports: DM Other: obesity - BMI 36 Anesthesia Pre-op Phys. Exam Physician Exam Last Vital Signs Date Time Temp Pulse Resp B/P (MAP) Pulse Ox O2 Delivery O2 Flow Rate FiO2 05/30/18 09:48 98.0 05/30/18 09:00 Room Air 05/30/18 08:00 75 20 137/66 (89) 90 Constitutional: NAD Neurologic: CN 2-12 intact Cardiovascular: RRR Respiratory: CTA Gastrointestinal: S/NT/ND Airway Exam Mallampati Score: Class III MO: full ROM: limited Teeth: missing, intact Anesthesia Pre-op A/P Labs Hematology Test 05/29/18 17:37 05/30/18 05:50 White Blood Count 13.6 K/UL (4.8-10.8) H 10.0 K/UL (4.8-10.8) Red Blood Count 4.57 M/UL (4.70-6.10) L 3.99 M/UL (4.70-6.10) L Hemoglobin 14.2 G/DL (14.2-18.0) 12.9 G/DL (14.2-18.0) L Hematocrit 42.8 % (42.0-52.0) 38.2 % (42.0-52.0) L Mean Corpuscular Volume 94 FL (80-99) 96 FL (80-99) Mean Corpuscular Hemoglobin 31.1 PG (27.0-31.0) H 32.3 PG (27.0-31.0) H Mean Corpuscular Hemoglobin Concent 33.2 G/DL (32.0-36.0) 33.8 G/DL (32.0-36.0) Red Cell Distribution Width 10.6 % (11.6-14.8) L 11.3 % (11.6-14.8) L Platelet Count 293 K/UL (150-450) 250 K/UL (150-450) Mean Platelet Volume 5.3 FL (6.5-10.1) L 5.9 FL (6.5-10.1) L Neutrophils (%) (Auto) 81.9 % (45.0-75.0) H 68.7 % (45.0-75.0) Lymphocytes (%) (Auto) 12.7 % (20.0-45.0) L 24.0 % (20.0-45.0) Monocytes (%) (Auto) 4.4 % (1.0-10.0) 5.4 % (1.0-10.0) Eosinophils (%) (Auto) 0.2 % (0.0-3.0) 1.5 % (0.0-3.0) Basophils (%) (Auto) 0.8 % (0.0-2.0) 0.5 % (0.0-2.0) Chemistry Test 05/29/18 17:37 05/30/18 05:50 Sodium Level 140 MMOL/L (136-145) 141 MMOL/L (136-145) Potassium Level 4.5 MMOL/L (3.5-5.1) 4.2 MMOL/L (3.5-5.1) Chloride Level 104 MMOL/L (98-107) 107 MMOL/L (98-107) Carbon Dioxide Level 27 MMOL/L (21-32) 28 MMOL/L (21-32) Anion Gap 10 mmol/L (5-15) 6 mmol/L (5-15) Blood Urea Nitrogen 27 mg/dL (7-18) H 25 mg/dL (7-18) H Creatinine 1.6 MG/DL (0.55-1.30) H 1.5 MG/DL (0.55-1.30) H Estimat Glomerular Filtration Rate 43.9 mL/min (>60) 47.3 mL/min (>60) Glucose Level 206 MG/DL (74-106) H 121 MG/DL (74-106) H Calcium Level 8.7 MG/DL (8.5-10.1) 8.1 MG/DL (8.5-10.1) L Total Bilirubin 0.9 MG/DL (0.2-1.0) 0.9 MG/DL (0.2-1.0) Aspartate Amino Transf (AST/SGOT) 14 U/L (15-37) L 12 U/L (15-37) L Alanine Aminotransferase (ALT/SGPT) 26 U/L (12-78) 21 U/L (12-78) Alkaline Phosphatase 47 U/L (46-116) 42 U/L (46-116) L Total Protein 7.3 G/DL (6.4-8.2) 6.2 G/DL (6.4-8.2) L Albumin 3.7 G/DL (3.4-5.0) 3.0 G/DL (3.4-5.0) L Globulin 3.6 g/dL 3.2 g/dL Albumin/Globulin Ratio 1.0 (1.0-2.7) 0.9 (1.0-2.7) L Lipase 110 U/L (73-393) Pre-Antibiotics Dru Gram Ancef IV Given Within 1 Hr of Incision: Yes Time Given: 13:44 Wesly Alvarez MD May 30, 2018 14:21
--- NOTE | 2018-05-30 14:22 | Immediate Post-Op Evaluation ---
Immediate Post-Op Evalulation Immediate Post-Op Evalulation Procedure: L Ureteroscopy, L Uretreral Stone Removal and Stent Placement Date of Evaluation: May 30, 2018 Time of Evaluation: 15:23 IV Fluids: 500 LR Blood Products: 0 Estimated Blood Loss: 20 Urinary Output: 0 Blood Pressure Systolic: 144 Blood Pressure Diastolic: 72 Pulse Rate: 73 Respiratory Rate: 16 O2 Sat by Pulse Oximetry: 99 Temperature (Fahrenheit): 97.8 Pain Score (1-10): 2 Nausea: No Vomiting: No Complications 0 Patient Status: awake, reacts, patent, none Hydration Status: adequate Dru Gram Ancef IV Given Within 1 Hr of Incision: Yes Time Given: 13:44 Wesly Alvarez MD May 30, 2018 14:22
[2018-05-30] MEDS ORDERED: HYDROmorphone 1mg/ml Carpuject IVP PRN (15:00)
[2018-05-30] MEDS ORDERED: HYDROcodone/Acetamin 5/325 tab ORAL PRN (15:00)
[2018-05-30 16:22] LABS: ANION GAP 9 mmol/L (5-15); BLOOD UREA NITROGEN 23 mg/dL (7-18); CALCIUM 8.1 MG/DL (8.5-10.1); CARBON DIOXIDE 28 MMOL/L (21-32); CHLORIDE 103 MMOL/L (98-107); CREATININE 1.6 MG/DL (0.55-1.30); POTASSIUM 4.7 MMOL/L (3.5-5.1); SODIUM 140 MMOL/L (136-145)
[2018-05-30 16:35] LABS: BASOPHILS % (AUTO) 0.7 % (0.0-2.0); EOSINOPHILS % (AUTO) 0.3 % (0.0-3.0); HEMATOCRIT 41.5 % (42.0-52.0); HEMOGLOBIN 13.7 G/DL (14.2-18.0); LYMPHOCYTES % (AUTO) 14.7 % (20.0-45.0); MEAN CORPUSCULAR VOLUME 95 FL (80-99); MONOCYTES % (AUTO) 5.2 % (1.0-10.0); NEUTROPHILS % (AUTO) 79.1 % (45.0-75.0); PLATELET COUNT 268 K/UL (150-450); RED BLOOD COUNT 4.36 M/UL (4.70-6.10); RED CELL DISTRIBUTION WIDTH 11.1 % (11.6-14.8); WHITE BLOOD COUNT 12.2 K/UL (4.8-10.8)
--- NOTE | 2018-05-30 16:54 | Diagnostic Imaging Report ---
INDICATION: Pain, intraoperative TECHNIQUE: Intraoperative imaging Fluoroscopy time: 73.3 seconds Total dose: 0.93506 mGym2 Total number of images: 6 7 COMPARISON: Reference made to abdomen pelvis CT dated 05/29/2018 FINDINGS: Intraoperative images document opacification of the left ureter, subsequent placement of a nephroureteral stent IMPRESSION: Intraoperative imaging, as described
[2018-05-30] MEDS: D5 1/2NS w/KCl 20mEq 1,000 ML IV SCH (17:43)
--- NOTE | 2018-05-30 19:37 | NUR ---
HAND-OFF: Report given to JAMIA Hwang.
--- NOTE | 2018-05-30 19:45 | NUR ---
NURSE NOTES: Upon initial rounding, patient rodriguez catheter noted with bright red urine. No clots at this time. Patient is aox4, denies pain at this time. WIll continue to monitor.Left message to Dr. Johnson. Awaiting call back
[2018-05-30] MEDS ORDERED: Tamsulosin 0.4mg cap ORAL SCH (21:00)
--- NOTE | 2018-05-30 21:50 | NUR ---
NURSE NOTES: 2114 Patient c/o pain on abdomen and also right chest pain, nonradiaating, denies shortness of breath. Vitals stable 146/76 HR 76 O2 96%. Dilaudid prn given to patient. Message left to Dr. Alfred, who stated to let Dr. Rubi know. Message left to Dr. Rubi. Awaiting for orders. 2144 Patient verbalized relief from pain and stated "no pain" at this time. [address] Rubi for 2dEcho. Order carried out. Patient and family at bedside made aware.
[2018-05-30] MEDS: ceFAZolin sod 2 GM in D5W 110 ML IV SCH (22:40)
--- NOTE | 2018-05-30 22:40 | NUR ---
NURSE NOTES: Received call from Dr. Johnson, explained to regarding worsening hematuria. Per AM shift, patient was received with pinkish urine in rodriguez catheter. Now, dark red urine in the rodriguez catheter, no clots at this time. IVF infusing, patient encouraged with PO fluid intake. Per Dr. Johnson, hematuria expected on first night. May irrigate with NS if urine starts clotting. Patient and family at bedside made aware.
[2018-05-31] VITALS: BP 119/60
--- NOTE | 2018-05-31 00:01 | NUR ---
NURSE NOTES: Patient skin warm to touch, noted with low grade fever 99.1. Denies any acute distress at this time. Tylenol given prn. OFfered cooling measures, also offered to take out the blankets, refused and stated "no, its okay". Will continue to monitor.
--- NOTE | 2018-05-31 01:00 | Consultation ---
DATE OF CONSULTATION: 05/30/2018 I believe the patient was admitted to the hospital last night with left ureteral stone. CHIEF COMPLAINT: Abdominal pain. HISTORY OF PRESENT ILLNESS: The patient was in the ER twice with a proximal left ureteral stone, pain, and nausea. CT scan was done showing a 5 mm stone in the proximal left ureter with left hydronephrosis. He was admitted for observation and possible surgery. PAST MEDICAL HISTORY: Significant for type 2 diabetes and renal stone disease. FAMILY HISTORY: None. REVIEW OF SYMPTOMS: Left flank pain, otherwise asymptomatic. PHYSICAL EXAMINATION: GENERAL: He is afebrile. VITAL SIGNS: Stable. NEUROLOGICAL: Neurologically intact. LUNGS: Clear to auscultation. CARDIOVASCULAR: Regular rate and rhythm. ABDOMEN: Slight tenderness in the left upper quadrant and left CVA tenderness. No suprapubic tenderness. GENITOURINARY: Prostate exam was deferred. LABORATORY AND DIAGNOSTIC DATA: White count of 10,000, hematocrit 32. Creatinine 1.5. CT scan was reviewed with confirmation of left upper ureteral stone and hydronephrosis. ASSESSMENT AND PLAN: The patient has proximal renal stone with mild changes in renal function and possible urinary tract infection. I recommend to have retrograde intrarenal surgery with stent placement. We will consent the patient and will see if he will agree to surgery and we will try it to do today. Elvis Johnson M.D. DR: Marcus JOB#: [id number] CC:
[2018-05-31] MEDS: D5 1/2NS w/KCl 20mEq 1,000 ML IV SCH ×3 (01:03→17:32)
--- NOTE | 2018-05-31 03:24 | NUR ---
NURSE NOTES: Patient's urine color in the rodriguez intermittently changes between pink and bright red. Still no clots noted. Will continue to monitor.
[2018-05-31 04:00] VITALS: BP 142/79
[2018-05-31] MEDS: ceFAZolin sod 2 GM in D5W 110 ML IV SCH (05:03)
--- NOTE | 2018-05-31 06:30 | History and Physical Report ---
DATE OF ADMISSION: 05/29/2018 HISTORY OF PRESENT ILLNESS: The patient is being admitted for obstructive kidney stones, leukocytosis, azotemia, obstructive uropathy, NIDDM. The patient has been basically came with persistent nausea, vomiting, and flank pain, and admitted for the obstructive kidney stone. PAST MEDICAL HISTORY: Diabetes, history of CVA, BPH as well as NIDDM. ALLERGIES: Codeine. MEDICATIONS: Ibuprofen, metformin, Januvia, Flomax. FAMILY HISTORY: Noncontributory. SOCIAL HISTORY: Denies history of alcohol or illicit drugs. REVIEW OF SYSTEMS: HEENT: Denies headaches. RESPIRATORY: Denies shortness of breath. Denies cough. CARDIOVASCULAR: Denies chest pain. GASTROINTESTINAL: Reports flank pain. CENTRAL NERVOUS SYSTEM: Denies change in vision or speech pattern. PHYSICAL EXAMINATION: VITAL SIGNS: Temperature 98.9, pulse 74, blood pressure 123/66. HEENT: PERRLA. NECK: Supple. No lymphadenopathy. CHEST: Clear to auscultation. CARDIOVASCULAR: Regular rate and rhythm. No murmurs or extra sounds. GASTROINTESTINAL: Soft, nontender, and nondistended. No organomegaly. EXTREMITIES: No edema. Moves all four extremities. Sensory intact to light touch. Reflexes equal on both sides. LABORATORY DATA: WBC of 13.6, hemoglobin of 14.2, platelets 293. Sodium 140, potassium 4.5, BUN of 27, creatinine 1.6, glucose of 206. ASSESSMENT/PLAN: 1. Azotemia. 2. Acute obstructive kidney stone . 3. NIDDM. I have asked Dr. Roberts, Dr. Johnson, Dr. Tellez, Dr. Olivier Barron Dr. see the patient for the chest pain as well as for the infectious treatment and treat the patient's UTI, as well as for dehydration, and treatment of obstructive uropathy as well as for pain management. Riley Alfred M.D. DR: Huseyin JOB#: [id number] CC:
--- NOTE | 2018-05-31 06:35 | NUR ---
NURSE NOTES: Patient c/o gas pain. No PRN for gas pain. Message left to Dr. Alfred. Awaiting response.
[2018-05-31 06:36] LABS: BASOPHILS % (AUTO) 0.6 % (0.0-2.0); HEMATOCRIT 37.5 % (42.0-52.0); HEMOGLOBIN 12.5 G/DL (14.2-18.0); LYMPHOCYTES % (AUTO) 23.7 % (20.0-45.0); MEAN CORPUSCULAR VOLUME 95 FL (80-99); MONOCYTES % (AUTO) 7.6 % (1.0-10.0); NEUTROPHILS % (AUTO) 67.1 % (45.0-75.0); PLATELET COUNT 239 K/UL (150-450); RED BLOOD COUNT 3.95 M/UL (4.70-6.10); RED CELL DISTRIBUTION WIDTH 11.2 % (11.6-14.8); WHITE BLOOD COUNT 9.8 K/UL (4.8-10.8)
[2018-05-31 06:56] LABS: ANION GAP 7 mmol/L (5-15); BLOOD UREA NITROGEN 15 mg/dL (7-18); CALCIUM 7.7 MG/DL (8.5-10.1); CARBON DIOXIDE 29 MMOL/L (21-32); CHLORIDE 102 MMOL/L (98-107); POTASSIUM 3.4 MMOL/L (3.5-5.1); SODIUM 138 MMOL/L (136-145)
--- NOTE | 2018-05-31 07:39 | NUR ---
HAND-OFF: Report given to Lisseth BLANDON.
--- NOTE | 2018-05-31 08:11 | NUR ---
NURSE NOTES: Report received from JAMIA Hwang. Pt in bed, awake, fatigued, talkative, respirations regular and unlabored, at bedside asking to speak with Dr. Johnson, will call today to find out about schedule. Called Respiratory for IS teaching and humidifier for NC. bed in lowest position, call light within reach.
--- NOTE | 2018-05-31 08:17 | NUR ---
NURSE NOTES: Notified Dr. Aubrie whaley 3.4
[2018-05-31 09:00] VITALS: BP 125/70
--- NOTE | 2018-05-31 09:36 | General Progress Note ---
Assessment/Plan Assessment/Plan (1) Left flank pain (2) Left Ureteral stone (3) Hydronephrosis Patient to be continued on Dilaudid and [place] an RX for Tramadol 50mg PO 1 tab Q6-8H PRN 15 tabs will be sent to patients pharmacy of choice. D/w Dr. Roberts and he concurred. Subjective Date patient seen: May 31, 2018 Time patient seen: 08:30 - am Constitutional: Reports: weakness HEENT: Reports: no symptoms Cardiovascular: Reports: no symptoms Respiratory: Reports: no symptoms Gastrointestinal/Abdominal: Reports: no symptoms Genitourinary: Reports: pain Neurologic/Psychiatric: Reports: no symptoms Endocrine: Reports: no symptoms Hematologic/Lymphatic: Reports: no symptoms Allergies: Coded Allergies: CODEINE (Verified Allergy, Unknown, 01/29/17) Uncoded Allergies: code (Allergy, Severe, Shortness of Breath, 01/21/14) swelling of tongue Subjective Patient is walking with and is s/p uroscopy with stent placement and stone removal. continues to c/o pain which has been tolerated on the Dilaudid and [place]. Objective Last 24 Hour Vital Signs Date Time Temp Pulse Resp B/P (MAP) Pulse Ox O2 Delivery O2 Flow Rate FiO2 05/31/18 08:07 Nasal Cannula 2.0 05/31/18 08:06 98 Nasal Cannula 2.0 28 05/31/18 04:00 98.4 73 19 142/79 (100) 95 05/31/18 01:03 98.4 05/31/18 00:00 99.1 70 18 119/60 (79) 93 05/30/18 21:39 96.9 05/30/18 21:00 Nasal Cannula 2.0 05/30/18 20:00 96.9 76 18 147/76 (99) 96 05/30/18 17:29 99.3 76 16 123/67 (85) 92 05/30/18 16:28 98.9 74 16 123/66 (85) 90 05/30/18 16:05 98.0 73 14 127/75 96 Nasal Cannula 3 05/30/18 15:55 69 15 122/68 95 Nasal Cannula 3 05/30/18 15:40 62 11 127/67 98 Nasal Cannula 3 05/30/18 15:30 73 15 147/70 96 Nasal Cannula 3 05/30/18 15:22 68 13 141/69 98 Simple Mask 6 05/30/18 15:17 64 15 140/56 98 Simple Mask 6 05/30/18 15:12 97.8 70 16 144/79 98 Simple Mask 6 05/30/18 15:09 73 16 99 Intake and Output 05/30/18 05/31/18 19:00 07:00 Intake Total 1164 ml 1470 ml Output Total 1870 ml 1350 ml Balance -706 ml 120 ml Intake IV Total 1164 ml 1470 ml Output Urine Total 1850 ml 1350 ml Estimated Blood Loss 20 ml Laboratory Tests 05/30/18 15:55: White Blood Count 12.2H, Red Blood Count 4.36L, Hemoglobin 13.7L, Hematocrit 41.5L, Mean Corpuscular Volume 95, Mean Corpuscular Hemoglobin 31.5H, Mean Corpuscular Hemoglobin Concent 33.1, Red Cell Distribution Width 11.1L, Platelet Count 268, Mean Platelet Volume 5.6L, Neutrophils (%) (Auto) 79.1H, Lymphocytes (%) (Auto) 14.7L, Monocytes (%) (Auto) 5.2, Eosinophils (%) (Auto) 0.3, Basophils (%) (Auto) 0.7, Sodium Level 140, Potassium Level 4.7, Chloride Level 103, Carbon Dioxide Level 28, Anion Gap 9, Blood Urea Nitrogen 23H, Creatinine 1.6H, Estimat Glomerular Filtration Rate 43.9, Glucose Level 153H, Calcium Level 8.1L 05/31/18 04:50: White Blood Count 9.8, Red Blood Count 3.95L, Hemoglobin 12.5L, Hematocrit 37.5L , Mean Corpuscular Volume 95, Mean Corpuscular Hemoglobin 31.7H, Mean Corpuscular Hemoglobin Concent 33.3, Red Cell Distribution Width 11.2L, Platelet Count 239, Mean Platelet Volume 6.0L, Neutrophils (%) (Auto) 67.1, Lymphocytes (%) (Auto) 23.7, Monocytes (%) (Auto) 7.6, Eosinophils (%) (Auto) 1.0, Basophils (%) (Auto) 0.6, Sodium Level 138, Potassium Level 3.4L, Chloride Level 102, Carbon Dioxide Level 29, Anion Gap 7, Blood Urea Nitrogen 15, Creatinine 1.0, Estimat Glomerular Filtration Rate > 60, Glucose Level 167H, Calcium Level 7.7L Height (Feet): 5 Height (Inches): 4.00 Weight (Pounds): 199 General Appearance: no apparent distress, alert EENT: PERRL/EOMI, normal ENT inspection Neck: non-tender, normal alignment Cardiovascular: normal rate, regular rhythm Respiratory/Chest: lungs clear, normal breath sounds Abdomen: non tender, soft Extremities: non-tender Edema: trace edema Neurologic: alert, oriented x 3 Skin: warm/dry Aristides Grullon May 31, 2018 09:36
--- NOTE | 2018-05-31 10:16 | NUR ---
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
[2018-05-31 12:00] VITALS: BP 134/75
[2018-05-31] MEDS: HYDROmorphone 1mg/ml Carpuject IVP PRN ×2 (12:04→15:02)
--- NOTE | 2018-05-31 12:06 | NUR ---
NURSE NOTES: Discontinued [place] catheter, per Dr. Johnson order, removed intact. Instructed pt on need to urinate within next 6 hours, provided pt with water and urinal
--- NOTE | 2018-05-31 12:55 | Cardiology Progress Note ---
Assessment/Plan Assessment/Plan The patient is seen and examined, full consult note will be dictated shortly. Objective Last 24 Hour Vital Signs Date Time Temp Pulse Resp B/P (MAP) Pulse Ox O2 Delivery O2 Flow Rate FiO2 05/31/18 12:00 98.8 73 20 134/75 (94) 92 05/31/18 09:00 97.5 69 18 125/70 (88) 91 05/31/18 09:00 Nasal Cannula 2.0 05/31/18 08:07 Nasal Cannula 2.0 05/31/18 08:06 98 Nasal Cannula 2.0 28 05/31/18 04:00 98.4 73 19 142/79 (100) 95 05/31/18 01:03 98.4 05/31/18 00:00 99.1 70 18 119/60 (79) 93 05/30/18 21:39 96.9 05/30/18 21:00 Nasal Cannula 2.0 05/30/18 20:00 96.9 76 18 147/76 (99) 96 05/30/18 17:29 99.3 76 16 123/67 (85) 92 05/30/18 16:28 98.9 74 16 123/66 (85) 90 05/30/18 16:05 98.0 73 14 127/75 96 Nasal Cannula 3 05/30/18 15:55 69 15 122/68 95 Nasal Cannula 3 05/30/18 15:40 62 11 127/67 98 Nasal Cannula 3 05/30/18 15:30 73 15 147/70 96 Nasal Cannula 3 05/30/18 15:22 68 13 141/69 98 Simple Mask 6 05/30/18 15:17 64 15 140/56 98 Simple Mask 6 05/30/18 15:12 97.8 70 16 144/79 98 Simple Mask 6 05/30/18 15:09 73 16 99 Intake and Output 05/30/18 05/31/18 19:00 07:00 Intake Total 1164 ml 1470 ml Output Total 1870 ml 1350 ml Balance -706 ml 120 ml Intake IV Total 1164 ml 1470 ml Output Urine Total 1850 ml 1350 ml Estimated Blood Loss 20 ml Laboratory Tests Test 05/30/18 15:55 05/31/18 04:50 White Blood Count 12.2 K/UL (4.8-10.8) H 9.8 K/UL (4.8-10.8) Red Blood Count 4.36 M/UL (4.70-6.10) L 3.95 M/UL (4.70-6.10) L Hemoglobin 13.7 G/DL (14.2-18.0) L 12.5 G/DL (14.2-18.0) L Hematocrit 41.5 % (42.0-52.0) L 37.5 % (42.0-52.0) L Mean Corpuscular Volume 95 FL (80-99) 95 FL (80-99) Mean Corpuscular Hemoglobin 31.5 PG (27.0-31.0) H 31.7 PG (27.0-31.0) H Mean Corpuscular Hemoglobin Concent 33.1 G/DL (32.0-36.0) 33.3 G/DL (32.0-36.0) Red Cell Distribution Width 11.1 % (11.6-14.8) L 11.2 % (11.6-14.8) L Platelet Count 268 K/UL (150-450) 239 K/UL (150-450) Mean Platelet Volume 5.6 FL (6.5-10.1) L 6.0 FL (6.5-10.1) L Neutrophils (%) (Auto) 79.1 % (45.0-75.0) H 67.1 % (45.0-75.0) Lymphocytes (%) (Auto) 14.7 % (20.0-45.0) L 23.7 % (20.0-45.0) Monocytes (%) (Auto) 5.2 % (1.0-10.0) 7.6 % (1.0-10.0) Eosinophils (%) (Auto) 0.3 % (0.0-3.0) 1.0 % (0.0-3.0) Basophils (%) (Auto) 0.7 % (0.0-2.0) 0.6 % (0.0-2.0) Sodium Level 140 MMOL/L (136-145) 138 MMOL/L (136-145) Potassium Level 4.7 MMOL/L (3.5-5.1) 3.4 MMOL/L (3.5-5.1) L Chloride Level 103 MMOL/L (98-107) 102 MMOL/L (98-107) Carbon Dioxide Level 28 MMOL/L (21-32) 29 MMOL/L (21-32) Anion Gap 9 mmol/L (5-15) 7 mmol/L (5-15) Blood Urea Nitrogen 23 mg/dL (7-18) H 15 mg/dL (7-18) Creatinine 1.6 MG/DL (0.55-1.30) H 1.0 MG/DL (0.55-1.30) Estimat Glomerular Filtration Rate 43.9 mL/min (>60) > 60 mL/min (>60) Glucose Level 153 MG/DL (74-106) H 167 MG/DL (74-106) H Calcium Level 8.1 MG/DL (8.5-10.1) L 7.7 MG/DL (8.5-10.1) L Adriel Rubi MD May 31, 2018 12:55
--- NOTE | 2018-05-31 14:15 | NUR ---
NURSE NOTES: Pt c/o having strong pain, bladder scan done, no residue (0 ml). Dr Alfred notified
--- NOTE | 2018-05-31 14:15 | NUR ---
NURSE NOTES: Notified Dr. Alfred, pt's family does not want to take pt home yet as pt is still having 10/10 pain
--- NOTE | 2018-05-31 14:35 | 48 Hour Post Anesthesia Eval ---
Post Anesthesia Evaluation Procedure: L Ureteroscopy, L Uretreral Stone Removal and Stent Placement Date of Evaluation: May 31, 2018 Time of Evaluation: 14:34 Blood Pressure Systolic: 134 0: 74 Pulse Rate: 68 Respiratory Rate: 20 Temperature (Fahrenheit): 97.6 O2 Sat by Pulse Oximetry: 98 Airway: patent Nausea: No Vomiting: No Pain Intensity: 3 Hydration Status: adequate Cardiopulmonary Status: stable Mental Status/LOC: patient returned to baseline Follow-up Care/Observations: n/a Post-Anesthesia Complications: none Follow-up care needed: N/A Shahbaz Jamison MD May 31, 2018 14:35
--- NOTE | 2018-05-31 14:45 | NUR ---
NURSE NOTES: Spoke to pt's . Pt to be discharged home tonight. She will pick pt up, wants pt to go home with pain medication. Request medical information records. Discussed Release of information form with , will fill out and leave in pt's room to sign. is requesting that pain medication be called into their pharmacy. My Pharmacist On-Call [phone]
--- NOTE | 2018-05-31 14:45 | Consultation ---
DATE OF CONSULTATION: 05/30/2018 PAIN MANAGEMENT CONSULTATION CONSULTING PHYSICIAN: Roseanne Roberts M.D. REFERRING PHYSICIAN: Riley Alfred M.D. PHYSICIAN HELPER COORDINATOR: Monica Beatty CHIEF COMPLAINT: left-sided flank pain HISTORY OF PRESENT ILLNESS: The patient is a 63-year-old male being seen on the med/surg floor of [facility] [place]. C/o left flank pain found to have urethral stone. Waiting to be seen by urologist. Pain is severe. We were consulted so patient has adequate pain control while here in the hospital. PAST MEDICAL HISTORY: BPH PAST SURGICAL HISTORY: Denies. SOCIAL HISTORY: Denies. REVIEW OF SYSTEMS: Denies rash, fever, chills, sweating, dizziness, drowsiness, blurred vision, sore throat, or change in weight. No shortness of breath or chest pain. No nausea, vomiting, diarrhea, or blood in the stool or urine. No bowel or bladder incontinence. left flank pain. PHYSICAL EXAMINATION: VITAL SIGNS: stable HEENT: PERRLA. NECK: Range of motion is full in all directions. No tenderness. No adenopathy. LUNGS: DBS B/l ABD: tenderness to palpation. BACK: Decreased ROM EXT: UE and LE Full ROM, NO CCE. ASSESSMENT AND PLAN: The patient is a 63-year-old male with left flank pain, left ureteral stone and hydronephrosis. We will start the patient on Dilaudid 1mg IV Q3H PRN severe pain The patient was discussed with Dr. Roberts, and Dr. Roberts concurred. We will follow the patient. Thank you very much for the courtesy of this consultation. Roseanne Roberts M.D. PAULO Beatty DR: ANIL JOB#: [id number] CC: TELMA
--- NOTE | 2018-05-31 15:07 | NUR ---
NURSE NOTES: Placed 16Fr Newton per Dr. Johnson order, draining slight pink urine
--- NOTE | 2018-05-31 15:30 | NUR ---
NURSE NOTES: Spoke to [facility] [place] in place ok to DC with [facility] per Elizabeth. Dr. Alfred said to proceed with DC of pt home
[2018-05-31 16:00] VITALS: BP 157/77
--- NOTE | 2018-05-31 17:42 | NUR ---
NURSE NOTES: Notified Dr. Alfred of 's request for pt have pain meds called into pharmacy. Provided Dr. Alfred with Pharmacy name and number and pt's
--- NOTE | 2018-05-31 18:39 | NUR ---
NURSE NOTES: Dr. Alfred said to contact Aristides Grullon for pain Spoke with Aristides, he already called in Rx to pt's pharmacy
--- NOTE | 2018-05-31 19:30 | NUR ---
NURSE NOTES: Reviewed all discharge information with pt and his . Notified them of need to follow-up with Urologist in 1-2 weeks and to have sent removed in a few month. pt signed all DC paperwork. IV removed, ID band removed. will help pt dress.
[2018-05-31 20:00] VITALS: BP 149/83
--- NOTE | 2018-05-31 20:01 | NUR ---
HAND-OFF: Report given to JAMIA De La Torre.
--- NOTE | 2018-05-31 20:02 | NUR ---
NURSE NOTES: Received report from JAMIA Montanez. Pt is awake in bed. In no acute distress. Bed in lowest position, call light within reach. Pt will be discharged home.
[2018-05-31] MEDS ORDERED: NS Irrig 1000ml ONE (20:29)
--- NOTE | 2018-05-31 20:30 | NUR ---
NURSE NOTES: Discharged home accompanied by via private car. Pt was in stable condition at the time of discharge. All personal belongings sent home with patient.
--- NOTE | 2018-05-31 22:18 | General Progress Note ---
Assessment/Plan Problem List: (1) Obstructive uropathy ICD Codes: N13.9 - Obstructive and reflux uropathy, unspecified SNOMED: [id number] Status: progressing Assessment/Plan s/p ureteral stent we have emphasized and given dc instruction for the patient to see urologist in one week for f/u as well as to remove the stent still flank pain pain meds per dr portillo cleared by dr etienne for dc Subjective Allergies: Coded Allergies: CODEINE (Verified Allergy, Unknown, 01/29/17) Uncoded Allergies: code (Allergy, Severe, Shortness of Breath, 01/21/14) swelling of tongue Subjective flank pain Objective Last 24 Hour Vital Signs Date Time Temp Pulse Resp B/P (MAP) Pulse Ox O2 Delivery O2 Flow Rate FiO2 05/31/18 16:00 98.7 71 20 157/77 (103) 92 05/31/18 15:32 97.6 05/31/18 14:35 68 20 98 05/31/18 12:00 98.8 73 20 134/75 (94) 92 05/31/18 09:00 97.5 69 18 125/70 (88) 91 05/31/18 09:00 Nasal Cannula 2.0 05/31/18 08:07 Nasal Cannula 2.0 05/31/18 08:06 98 Nasal Cannula 2.0 28 05/31/18 04:00 98.4 73 19 142/79 (100) 95 05/31/18 01:03 98.4 05/31/18 00:00 99.1 70 18 119/60 (79) 93 Intake and Output 05/30/18 05/31/18 19:00 07:00 Intake Total 1164 ml 1470 ml Output Total 1870 ml 1350 ml Balance -706 ml 120 ml Intake IV Total 1164 ml 1470 ml Output Urine Total 1850 ml 1350 ml Estimated Blood Loss 20 ml Laboratory Tests 05/31/18 04:50: White Blood Count 9.8, Red Blood Count 3.95L, Hemoglobin 12.5L, Hematocrit 37.5L , Mean Corpuscular Volume 95, Mean Corpuscular Hemoglobin 31.7H, Mean Corpuscular Hemoglobin Concent 33.3, Red Cell Distribution Width 11.2L, Platelet Count 239, Mean Platelet Volume 6.0L, Neutrophils (%) (Auto) 67.1, Lymphocytes (%) (Auto) 23.7, Monocytes (%) (Auto) 7.6, Eosinophils (%) (Auto) 1.0, Basophils (%) (Auto) 0.6, Sodium Level 138, Potassium Level 3.4L, Chloride Level 102, Carbon Dioxide Level 29, Anion Gap 7, Blood Urea Nitrogen 15, Creatinine 1.0, Estimat Glomerular Filtration Rate > 60, Glucose Level 167H, Calcium Level 7.7L Height (Feet): 5 Height (Inches): 4.00 Weight (Pounds): 199 Riley Alfred MD May 31, 2018 22:18
--- NOTE | 2018-06-01 02:45 | Consultation ---
DATE OF CONSULTATION: 05/31/2018 INFECTIOUS DISEASE CONSULTATION CONSULTING PHYSICIAN: Olivier Barron M.D. PRIMARY ATTENDING PHYSICIAN: Riley Alfred M.D. REASON FOR CONSULT: Renal colic, obstructive uropathy, and kidney stone. HISTORY OF PRESENT ILLNESS: This is a 63-year-old male admitted on 05/29/2018 complaining of left flank pain, nausea, and vomiting. The patient's problem started suddenly on 05/28/2018. The patient came to the ER and received morphine and has returned home. The next day, he could not tolerate and was admitted and was found to have a left ureteral stone. He had a cystoscopy and a stent placement, but a try for removal of the stone was not successful. PAST MEDICAL HISTORY: Diabetes mellitus type 2 and history of renal stone that passed spontaneously. MEDICATIONS: He had preprocedure Cefazolin for 1 day, Mylanta, Zofran, Tylenol, Ransom, and hydromorphone. ALLERGIES: Allergic to codeine. SOCIAL HISTORY: . No drugs or alcohol abuse. REVIEW OF SYSTEMS: Complaining of left flank pain that seems intolerable. No other complaints. PHYSICAL EXAMINATION: VITAL SIGNS: Temperature 97.6, pulse 68, and blood pressure is 134/75. GENERAL APPEARANCE: No acute distress. Seems overweight. HEAD AND NECK: [place] conjunctivae. HEART: Normal rate. LUNGS: Clear. ABDOMEN: Soft and nontender. obese. GENITOURINARY: Newton catheter with some hematuria. EXTREMITIES: No edema. NEUROLOGIC: Awake, alert, and oriented x3. LABORATORY AND DIAGNOSTIC DATA: Sodium 138, potassium 3.4, chloride 102, bicarbonate 29, BUN 15, creatinine 1, and glucose 167. Albumin is 3. WBC 9.8, hemoglobin 12.5, hematocrit 37.5, and platelet count 39. CT scan of the abdomen and pelvis on 05/28/2018 showed left ureteral calculus, left hydronephrosis & hydroureter, and perinephric and periureteral fat stranding, bilateral pulmonary parenchymal ground-glass opacities, and atelectatic change. UA showed WBC of 0 and RBC 0 to 2. IMPRESSION: Renal colic secondary to left ureteral stone associated with left hydronephrosis. The patient is status post stent placement, has acute renal failure, has diabetes mellitus type 2, and has history of CVA. RECOMMENDATION: Agree with the patient's discharge without antibiotics. Follow up by urologist. At the end of my exam, I thank Dr. Alfred for involving me in the care of this patient. Olivier Barron M.D. DR: CALIXTO JOB#: [id number] CC: TELMA
--- NOTE | 2018-06-04 08:37 | Discharge Summary ---
Discharge Summary Discharge Summary _ DATE OF ADMISSION: 05/29/2018 DATE OF DISCHARGE: 05/31/2018 DISCHARGED BY: Dr. Riley Luque CONSULTANTS: Dr. Olivier Johnson BRIEF HOSPITAL COURSE: Patient is a 63-year-old male, who presented to ED due to abdominal pain. He initially presented to ED the day prior for similar complaints. CT of the abdomen and pelvis showed a 5 mm obstructing left mid ureteral stone with mild hydroureter and perinephric stranding. He felt better and wanted to go home. Following day, symptoms increased. He had persistent nausea, vomiting and was unable to take any medications. He then presented back to ED. On evaluation at the ED, WBC was 13.6, hemoglobin and hematocrit were stable. Electrolytes were normal. Creatinine was elevated to 1.6, BUN 27. LFTs were normal. Urinalysis was negative. He was given pain management. He was given IV hydration. He was then admitted for management of obstructive uropathy. He was given pain management. Urologist was consulted. On May 30, 2018, he underwent left ureteroscopy with left ureteral stone removal and stent placement. He tolerated procedure well. Procedure was uneventful. He was given Ancef preprocedure. Per ID specialist, no need to continue antibiotics. He was eventually discharged home. He was advised and was given instructions to follow-up with urologist in 1 week for stent removal. FINAL DIAGNOSES: Obstructive uropathy due to left ureteral stone Status post left ureteroscopy with left ureteral stone removal and stent placement DISPOSITION: Patient was discharged home. DISCHARGE MEDICATIONS: Refer to Discharge Medication List. DISCHARGE INSTRUCTIONS: Follow-up with urologist in a week for stent removal. I have been assigned to complete a discharge summary on this account, I was not involved with the patient's management. Carola Alvarez NP Jun 04, 2018 08:37
== END 2018-05-31 20:30 | disposition home or self-care (01) | DRG 694 ==
LOC: EDBEDREQ 17:41 → EMR 18:55 → 4E 19:16 → EDBEDREQ 20:58 → 4E 23:26
PROC: BT1F1ZZ Fluoroscopy of Left Kidney, Ureter and Bladder using Low Osmolar Contrast (ICD-10-PCS; principal; 2018-05-30 13:15)
DX: N13.2 Hydronephrosis with renal and ureteral calculous obstruction (principal); N13.8 Other obstructive and reflux uropathy; E11.9 Type 2 diabetes mellitus without complications; Z86.73 Personal history of transient ischemic attack (TIA), and cerebral infarction without residual deficits; Z88.6 Allergy status to analgesic agent; N40.0 Benign prostatic hyperplasia without lower urinary tract symptoms
CPT/HCPCS: 36415; 74420; 76000; 80048; 80053; 81003; 82962; 83690; 85025; 93306; 94003; 94150; 94760; 96361; 96374; 96375; 99285; J2250; J2405

== ENCOUNTER 2018-06-10 22:39 | Inpatient (IN) | payer OTHER ==
[~2018-06-10] VITALS: Ht 170.2 cm; Wt 95.4 kg
[~2018-06-10 22:39] MED LIST changes: +IBUPROFEN600 MG ORAL
[2018-06-10 23:03] VITALS: BP 118/71
--- NOTE | 2018-06-10 23:08 | Emergency Room Report ---
History of Present Illness General Chief Complaint: Abdominal Pain Source: Patient Present Illness HPI This is a 63-year-old male with a history of left obstructive uropathy secondary to a ureteral stone. I saw him initially and he left AMA. He came back and got admitted the next day. Subsequently, he had a stent placed and kidney stone removal. He also had a catheter placed on discharge. He follow- up with Dr. Johnson's office 2 days ago. He was placed on Cipro but did not take it until today. He spiked a fever 102 at home. Also felt nauseous and 5 out of 10 pain. Son brought him here to be evaluated. Patient denies any diarrhea. No abdominal pain. Allergies: Coded Allergies: CODEINE (Verified Allergy, Unknown, 01/29/17) Uncoded Allergies: code (Allergy, Severe, Shortness of Breath, 01/21/14) swelling of tongue Patient History Past Medical History: see triage record, old chart reviewed Past Surgical History: other Pertinent Family History: none Social History: Denies: smoking Immunizations: other Reviewed Nursing Documentation: PMH: Agreed; PSxH: Agreed Nursing Documentation-PMH Past Medical History: No History, Except For Hx Cardiac Problems: No Hx Diabetes: Yes - type 2 diabetes Hx Cancer: No Hx Gastrointestinal Problems: No Hx Cerebrovascular Accident: Yes - 2012 Review of Systems Constitutional: Reports: fever Eye: Denies: eye pain, blurred vision ENT: Denies: ear pain, nose congestion, throat swelling Respiratory: Denies: cough, shortness of breath Cardiovascular: Denies: chest pain, palpitations Gastrointestinal: Reports: nausea, vomiting; Denies: abdominal pain, diarrhea Musculoskeletal: Denies: back pain, joint pain Skin: Denies: rash Neurological: Denies: headache, numbness Endocrine: Denies: increased thirst, increased urine Hematologic/Lymphatic: Denies: easy bruising All Other Systems: negative except mentioned in HPI Physical Exam Vital Signs Date Time Temp Pulse Resp B/P (MAP) Pulse Ox O2 Delivery O2 Flow Rate FiO2 06/10/18 22:44 101.5 88 16 118/71 97 Room Air vitals with fever Sp02 EP Interpretation: reviewed, normal General Appearance: well appearing, no apparent distress, alert Head: normocephalic, atraumatic Eyes: bilateral eye PERRL, bilateral eye EOMI ENT: hearing grossly normal, normal pharynx Neck: full range of motion, supple, no meningismus Respiratory: chest non-tender, lungs clear, normal breath sounds Cardiovascular #1: regular rate, rhythm, no murmur Gastrointestinal: normal bowel sounds, non tender, no mass, no organomegaly, no bruit, non-distended Musculoskeletal: back normal, gait/station normal, normal range of motion Neurologic: alert, oriented x3 Psychiatric: mood/affect normal Skin: warm/dry Medical Decision Making Diagnostic Impression: Primary Impression: Sepsis Qualified Codes: A41.9 - Sepsis, unspecified organism Additional Impressions: UTI (urinary tract infection) Qualified Codes: N30.00 - Acute cystitis without hematuria Hyperglycemia due to type 2 diabetes mellitus Qualified Codes: E11.65 - Type 2 diabetes mellitus with hyperglycemia ER Course Patient presents with sepsis from UTI. He still has his Newton catheter in. He had recent stents for obstructive ureteral stone. Because of his history of diabetes and recent procedure and indwelling Newton, will admit for IV antibiotics. I DC his Newton catheter. Vital signs are stable. Discussed the case with Dr. aCmpbell who will admit. Lab Results Impression labs with elevated white count Last Vital Signs Date Time Temp Pulse Resp B/P (MAP) Pulse Ox O2 Delivery O2 Flow Rate FiO2 06/10/18 22:44 101.5 88 16 118/71 97 Room Air Status: improved Disposition: ADMITTED INPATIENT Condition: Serious Jerson Segura MD Jun 10, 2018 23:07
[2018-06-10] MEDS ORDERED: cefTRIAXone 1 GM in NS 55 ML IVPB ONE (23:15)
[2018-06-10 23:23] LABS: APPEARANCE,URINE SLIGHTLY CLOUDY; BILIRUBIN, URINE 1+ (NEGATIVE); COLOR,URINE AMBER; GLUCOSE, URINE (UA) 4+ (NEGATIVE); KETONES,URINE 1+ (NEGATIVE); LEUKOCYTE ESTERASE ,URINE 2+ (NEGATIVE); NITRITE,URINE POSITIVE (NEGATIVE); PH,URINE 5 (4.5-8.0); PROTEIN,URINE 3+ (NEGATIVE); UROBILINOGEN,URINE 4 MG/DL (0.0-1.0)
[2018-06-10 23:28] LABS: HEMATOCRIT 35.5 % (42.0-52.0); HEMOGLOBIN 12.8 G/DL (14.2-18.0); MEAN CORPUSCULAR VOLUME 91 FL (80-99); PLATELET COUNT 377 K/UL (150-450); RED CELL DISTRIBUTION WIDTH 10.4 % (11.6-14.8)
[2018-06-10 23:30] LABS: WHITE BLOOD COUNT 23.1 K/UL (4.8-10.8)
[2018-06-10 23:33] LABS: ANION GAP 9 mmol/L (5-15); BLOOD UREA NITROGEN 25 mg/dL (7-18); CALCIUM 8.4 MG/DL (8.5-10.1); CARBON DIOXIDE 27 MMOL/L (21-32); CHLORIDE 94 MMOL/L (98-107); CREATININE 1.2 MG/DL (0.55-1.30); POTASSIUM 3.9 MMOL/L (3.5-5.1); SODIUM 129 MMOL/L (136-145)
[2018-06-11] VITALS (7 sets, daily range): BP systolic 103–121; BP diastolic 56–84
[2018-06-11] MEDS: sitaGLIPtin 25mg tab ORAL SCH (09:12)
[2018-06-11] MEDS: Tamsulosin 0.4mg cap ORAL SCH (09:12)
[2018-06-11] MEDS: metFORMIN 500mg tab ORAL SCH ×2 (09:12→18:27)
[2018-06-11] MEDS: Morphine Sulfate 2mg/ml Inj(IV/IM USE ONLY) IVP PRN ×3 (09:13→21:27)
[2018-06-11] MEDS: NovoLOG Insulin Flexpen SUBQ SCH ×3 (12:13→21:21)
[2018-06-11] MEDS: Piperacillin/Tazobactam 3.375 GM in NS 110 ML IVPB SCH ×2 (14:00→21:31)
--- NOTE | 2018-06-11 19:45 | Consultation ---
DATE OF CONSULTATION: 06/11/2018 INFECTIOUS DISEASES CONSULTATION CONSULTING PHYSICIAN: Olivier Barron M.D. PRIMARY ATTENDING PHYSICIAN: Riley Alfred M.D. REASON FOR CONSULT: Sepsis and urinary tract infection. HISTORY OF PRESENT ILLNESS: This is a 63-year-old male admitted early this morning from home. The patient has a recent history of admission to hospital between 05/29/2018 and 05/31/2018. In previous admission, he had a renal colic and hydronephrosis in the left kidney because of stone in the ureter. He had a stent placement on 05/30/2018, but the trial for removal of this stone was unsuccessful. After discharge, the patient was followed by primary urologist, Dr. Johnson, and he prescribed antibiotic Cipro, but he did not take antibiotics on to the day of admission. He had fever of 102, nausea, and vomiting. Fever started two days ago. PAST MEDICAL HISTORY: Diabetes mellitus type 2, hyperlipidemia, kidney stone, and left ureteral stent placement. MEDICATIONS: Atorvastatin, Zosyn, insulin, metformin, Januvia, Flomax, morphine sulfate, and Tylenol. He got a dose of ceftriaxone in the ER. ALLERGIES: Allergic to codeine. SOCIAL HISTORY: . No history of alcohol, drug abuse, or smoking. REVIEW OF SYSTEMS: Per history of present illness. He had fever, nausea, vomiting, decrease in appetite, and left lower quadrant abdominal pain. PHYSICAL EXAMINATION: VITAL SIGNS: Temperature 98.3, T-max is 101.5, pulse 79, and blood pressure 121/56. GENERAL APPEARANCE: No acute distress. HEAD AND NECK: [place] conjunctivae. Slightly dry mouth. HEART: Normal rate. LUNGS: Clear. ABDOMEN: Soft and obese. Mild left lower quadrant tenderness. EXTREMITIES: Has no edema. LABORATORY AND DIAGNOSTIC DATA: WBC is 23.1, hemoglobin 12.9, hematocrit 35.5, and platelets is 377,000. Sodium 129, potassium 3.9, chloride 94, BUN 25, creatinine 1.2, and glucose 262. Urine culture so far is negative. Blood cultures are pending. IMPRESSION: Sepsis with fever and leukocytosis, likely urinary tract infection. The patient has hematuria and pyuria and urine is positive for nitrites. He has diabetes type 2 with hyperglycemia. He has hyponatremia. RECOMMENDATION: We will continue with Zosyn. The patient will follow up by urologist. At the end of my exam, I thank Dr. Alfred for involving me in the care of this patient. Olivier Barron M.D. DR: CALIXTO JOB#: [id number] CC:
[2018-06-12] VITALS: BP 112/52
[2018-06-12 04:00] VITALS: BP 115/56
--- NOTE | 2018-06-12 05:15 | History and Physical Report ---
DATE OF ADMISSION: 06/11/2018 ADDENDUM HISTORY OF PRESENT ILLNESS: The patient was recently admitted, was discharged a couple of days ago, and came back. I have already dictated on the patient for the last admission and this is an addendum. The patient has sustained problems mainly the flank pain and is admitted for sepsis and urinary tract infection. The patient had recent stent placed at [place] by Dr. Elivs Johnson for obstructive renal stone and complains of flank pain and sometimes chills, and admitted for UTI, rule out pyelonephritis. PAST MEDICAL HISTORY: Recent kidney stone, hyperlipidemia, NIDDM, BPH, and history of DVT. PAST SURGICAL HISTORY: Ureteral stent. ALLERGIES: To codeine. MEDICATIONS: Metformin, Januvia, and Flomax. FAMILY HISTORY: Noncontributory. SOCIAL HISTORY: No history of smoking, alcohol, or illicit drugs. REVIEW OF SYSTEMS: HEENT: Denies headaches. RESPIRATORY: Denies shortness of breath. Denies cough. CARDIOVASCULAR: Denies chest pain. GASTROINTESTINAL: Denies nausea, vomiting, or diarrhea. Does have abdominal pain and chronic back pain. CENTRAL NERVOUS SYSTEM: No change in vision or speech pattern. Feels weak. PHYSICAL EXAMINATION: VITAL SIGNS: Temperature 100.8 degrees, pulse 89, and blood pressure 121/56. HEENT: PERRLA. NECK: Supple. No lymphadenopathy. CHEST: Clear to auscultation. CARDIOVASCULAR: Regular rate and rhythm. No murmurs or extra sounds. GASTROINTESTINAL: Left flank pain tenderness. Soft and nontender. Positive bowel sounds. No organomegaly. EXTREMITIES: No edema. Moves all four extremities. CENTRAL NERVOUS SYSTEM: Sensory intact to light touch. Reflexes equal on both sides. LABORATORY DATA: WBC of 23, hemoglobin 12.8, and platelets 377,000. Sodium 129, potassium 3.9, BUN of 25, and creatinine 1.2. ASSESSMENT AND PLAN: UTI, ureteral stent, and sepsis. I have asked Dr. Elvis Johnson and Dr. Olivier Barron, who are going to see the patient for the above-mentioned diagnoses and treatment. I have asked Dr. Alfaro to see the patient for the history of DVT. Riley Alfred M.D. DR: SAMUEL JOB#: [id number] CC:
[2018-06-12] MEDS: Morphine Sulfate 2mg/ml Inj(IV/IM USE ONLY) IVP PRN ×3 (05:40→22:19)
[2018-06-12] MEDS: NovoLOG Insulin Flexpen SUBQ SCH ×4 (05:40→21:53)
[2018-06-12] MEDS: Piperacillin/Tazobactam 3.375 GM in NS 110 ML IVPB SCH ×3 (05:41→22:19)
[2018-06-12 08:00] VITALS: BP 91/60
[2018-06-12] MEDS: sitaGLIPtin 25mg tab ORAL SCH (08:47)
[2018-06-12] MEDS: metFORMIN 500mg tab ORAL SCH ×2 (08:48→18:40)
[2018-06-12] MEDS: Tamsulosin 0.4mg cap ORAL SCH (08:48)
--- NOTE | 2018-06-12 10:59 | Infectious Diseases Prog Note ---
Assessment/Plan Assessment/Plan A: Sepsis with fever and leukocytosis, Bacteremia urinary tract infection. diabetes type 2 with hyperglycemia. hyponatremia. RECOMMENDATION: We will continue with Zosyn. Start on IV vancomycin The patient will be followed up by urologist. Subjective ROS Limited/Unobtainable: No Constitutional: Reports: fever Respiratory: Reports: no symptoms Cardiovascular: Reports: no symptoms Genitourinary: Reports: dysuria Neurologic: Reports: no symptoms Musculoskeletal: Reports: no symptoms Allergies: Coded Allergies: CODEINE (Verified Allergy, Unknown, 01/29/17) Uncoded Allergies: code (Allergy, Severe, Shortness of Breath, 01/21/14) swelling of tongue Objective Vital Signs Last 24 Hour Vital Signs Date Time Temp Pulse Resp B/P (MAP) Pulse Ox O2 Delivery O2 Flow Rate FiO2 06/12/18 09:00 Room Air 06/12/18 08:00 100.6 75 18 91/60 (70) 99 06/12/18 04:00 98.4 80 18 115/56 (75) 96 06/12/18 00:00 98.6 76 17 112/52 (72) 95 06/11/18 21:00 Room Air 06/11/18 20:00 98.9 72 19 107/60 (76) 95 06/11/18 16:06 98.4 76 18 107/57 (74) 94 06/11/18 12:00 99.7 72 18 103/61 (75) 99 62 Height (Feet): 5 Height (Inches): 7.00 Weight (Pounds): 206 General Appearance: no acute distress HEENT: mucous membranes moist Respiratory/Chest: lungs clear Cardiovascular: normal rate Abdomen: soft, non tender Extremities: no edema Neurologic/Psychiatric: alert, oriented x 3, responsive Microbiology Date/Time Source Procedure Growth Status 06/10/18 23:15 Blood Blood Culture - Preliminary Gram Positive Cocci Resulted 06/10/18 23:00 Blood Blood Culture - Preliminary NO GROWTH AFTER 24 HOURS Resulted 06/10/18 23:00 Urine,Clean Catch Urine Culture - Preliminary Strep Species, Gamma-Hemolytic Resulted 06/10/18 23:30 Rectum Received Current Medications Medications (Trade) Dose Ordered Sig/Billy Route PRN Reason Start Time Stop Time Status Last Admin Dose Admin Acetaminophen (Tylenol) 650 mg Q4H PRN ORAL Mild Pain/Temp > 100.5 06/11/18 07:00 07/11/18 06:59 06/12/18 08:48 Atorvastatin Calcium (Lipitor) 10 mg BEDTIME ORAL 06/11/18 21:00 07/11/18 20:59 06/11/18 21:28 Dextrose (Dextrose 50%) 25 ml Q30M PRN IV Hypoglycemia 06/11/18 07:15 07/11/18 07:14 Dextrose (Dextrose 50%) 50 ml Q30M PRN IV Hypoglycemia 06/11/18 07:15 07/11/18 07:14 Ibuprofen (Motrin) 600 mg Q6H PRN ORAL moderate pain 06/11/18 07:15 07/11/18 06:59 Insulin Aspart (NovoLOG) BEFORE MEALS AND HS SUBQ 06/11/18 11:30 07/11/18 11:29 06/12/18 05:40 Metformin HCl (Glucophage) 500 mg TWICE A DAY ORAL 06/11/18 09:00 07/11/18 08:59 06/12/18 08:48 Morphine Sulfate (Morphine Sulfate) 2 mg Q2H PRN IVP For Pain 06/11/18 09:00 06/18/18 08:59 06/12/18 05:40 Phenazopyridine HCl (Pyridium) 100 mg BID ORAL 06/12/18 09:00 07/12/18 08:59 06/12/18 08:47 Piperacillin Sod/ Tazobactam Sod 3.375 gm/Sodium Chloride 110 ml @ 27.5 mls/hr EVERY 8 HOURS IVPB 06/11/18 14:00 06/16/18 13:59 06/12/18 05:41 Sitagliptin Phosphate (Januvia) 25 mg DAILY ORAL 06/11/18 09:00 07/11/18 08:59 06/12/18 08:47 Tamsulosin HCl (Flomax) 0.4 mg DAILY ORAL 06/11/18 09:00 07/11/18 08:59 06/12/18 08:48 Olivier Barron MD Jun 12, 2018 10:59
[2018-06-12 12:00] VITALS: BP 107/58
[2018-06-12] MEDS ORDERED: Vancomycin 1.5gm/D5W 275ml IVPB SCH ×2 (13:00)
[2018-06-12 16:00] VITALS: BP 120/94
--- NOTE | 2018-06-12 17:17 | Diagnostic Imaging Report ---
Indication: Left flank pain, abnormal renal function tests Technique: Grayscale and duplex images of the kidneys, retroperitoneum, and bladder were obtained. Comparison: Reference made to abdomen pelvis CT for 10/09/2018 Findings: Right kidney measures 12.6 cm in length. Left kidney measures 12.8 cm in length. Both kidneys demonstrate normal echogenicity. No hydronephrosis. Multiple right renal cysts incidentally noted. Hyperechoic focus noted in the lower pole of the left kidney. Normal inferior vena cava. Equivocal mild bladder wall thickening, could be an artifact of under distention. Bladder is otherwise normal. Bilateral ureteral jets are noted.. Impression: Negative for hydronephrosis. Note that left hydronephrosis described on recent CT scan is not evident. Punctate left lower pole hyperechoic focus, could represent a calculus, or could be artifactual given absence of evidence of intrarenal calculi on recent CT Right renal cysts, also previously described Equivocal mild bladder wall thickening, possibly an artifact of under distention, possibility of cystitis should be considered
[2018-06-12 20:00] VITALS: BP 113/68
--- NOTE | 2018-06-12 20:29 | General Progress Note ---
Assessment/Plan Problem List: (1) Leg pain ICD Codes: M79.606 - Pain in leg, unspecified SNOMED: 73053387 (2) Ankle sprain ICD Codes: S93.409A - Sprain of unspecified ligament of unspecified ankle, initial encounter SNOMED: 56778924 (3) Peripheral edema ICD Codes: R60.9 - Edema, unspecified SNOMED: 232660366 (4) Obstructive uropathy ICD Codes: N13.9 - Obstructive and reflux uropathy, unspecified SNOMED: 3249939 Status: progressing Assessment: s/p urethral stent uti kidney stone r/o pyelonephritis afebrile abx per id Subjective ROS Limited/Unobtainable: Yes Allergies: Coded Allergies: CODEINE (Verified Allergy, Unknown, 01/29/17) Uncoded Allergies: code (Allergy, Severe, Shortness of Breath, 01/21/14) swelling of tongue Objective Last 24 Hour Vital Signs Date Time Temp Pulse Resp B/P (MAP) Pulse Ox O2 Delivery O2 Flow Rate FiO2 06/12/18 16:00 97.7 106 18 120/94 (103) 96 06/12/18 12:00 97.9 72 20 107/58 (74) 96 06/12/18 09:00 Room Air 06/12/18 08:00 100.6 75 18 91/60 (70) 99 06/12/18 04:00 98.4 80 18 115/56 (75) 96 06/12/18 00:00 98.6 76 17 112/52 (72) 95 06/11/18 21:00 Room Air Intake and Output 06/11/18 06/12/18 19:00 07:00 Intake Total 955.0 ml 267.5 ml Balance 955.0 ml 267.5 ml Intake Oral 900 ml 240 ml IV Total 55.0 ml 27.5 ml # Voids 3 3 Height (Feet): 5 Height (Inches): 7.00 Weight (Pounds): 206 Cardiovascular: normal rate Respiratory/Chest: lungs clear Abdomen: soft Riley Alfred MD Jun 12, 2018 20:29
[2018-06-12 20:32] LABS: BASOPHILS % (AUTO) 1.4 % (0.0-2.0); EOSINOPHILS % (AUTO) 1.6 % (0.0-3.0); HEMATOCRIT 30.7 % (42.0-52.0); HEMOGLOBIN 10.6 G/DL (14.2-18.0); LYMPHOCYTES % (AUTO) 18.6 % (20.0-45.0); MEAN CORPUSCULAR VOLUME 91 FL (80-99); MONOCYTES % (AUTO) 4.9 % (1.0-10.0); NEUTROPHILS % (AUTO) 73.4 % (45.0-75.0); PLATELET COUNT 427 K/UL (150-450); RED BLOOD COUNT 3.37 M/UL (4.70-6.10); RED CELL DISTRIBUTION WIDTH 10.4 % (11.6-14.8); WHITE BLOOD COUNT 12.8 K/UL (4.8-10.8)
[2018-06-12 20:55] LABS: ANION GAP 8 mmol/L (5-15); BLOOD UREA NITROGEN 18 mg/dL (7-18); CALCIUM 8.3 MG/DL (8.5-10.1); CARBON DIOXIDE 26 MMOL/L (21-32); CHLORIDE 98 MMOL/L (98-107); POTASSIUM 4.1 MMOL/L (3.5-5.1); SODIUM 132 MMOL/L (136-145)
--- NOTE | 2018-06-12 21:30 | Consultation ---
DATE OF CONSULTATION: 06/12/2018 UROLOGY CONSULTATION CONSULTING PHYSICIAN: Andre Barton M.D. REFERRING PHYSICIAN: Riley Alfred M.D. CHIEF COMPLAINT AND HISTORY OF PRESENT ILLNESS: I was asked by Dr. Alfred to evaluate this 63-year-old Georgian gentleman regarding history of urinary tract infection in the setting of recent stone surgery. Briefly, the patient was seen at the hospital here approximately two weeks ago. At that time, he had left-sided abdominal flank pain. A CT scan revealed a 5 mm stone in the proximal left ureter. He was seen by Dr. Johnson at that time and underwent cystoscopy with double-J stent placement. Per discussion with Dr. Johnson, placement of the stent was difficult, but once the stent was in position, the patient was stabilized and sent home. The patient wished to go to home with a Newton catheter, as he had some dysuria, urinating which was likely secondary to stent pain. He was scheduled to see Dr. Johnson today for followup and return to the hospital yesterday with what appears to be urinary tract infection secondary to the Newton catheter. 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 PAST MEDICAL HISTORY: 1. Nephrolithiasis. 2. Hyperlipidemia. 3. Diabetes mellitus. 4. BPH. 5. DVT. PAST SURGICAL HISTORY: Cystoscopy with double-J stent placement, left side. MEDICATIONS: Please see the chart for current medications administration details. Briefly, the patient is on vancomycin and Zosyn for antibiotic coverage. He is also receiving tamsulosin and Pyridium. ALLERGIES: Include codeine. SOCIAL HISTORY: Unremarkable for tobacco, alcohol, or drug use. FAMILY HISTORY: Noncontributory. REVIEW OF SYSTEMS: A 14-system review of systems was unremarkable outside what is described above. PHYSICAL EXAMINATION: GENERAL: The patient is a older Georgian gentleman, awake and alert. Oriented x4, pleasant, in no obvious distress. HEENT: NC/AT. EOMI. NECK: Supple. Oropharynx is clear. CHEST: Within normal limits. ABDOMEN: Soft, obese, nontender, and nondistended. EXTREMITIES: Warm and well perfused. No cyanosis, clubbing, or edema. BACK: No CVA tenderness to percussion. NEUROLOGIC: Grossly nonfocal GENITOURINARY: Reveals normal male external genitalia. LABORATORY DATA: White blood cell count 23.1, hematocrit 35.5, platelets 377,000. Sodium 129, potassium 3.9, chloride 94, bicarbonate 27, BUN 25, creatinine 1.2, glucose 262, calcium 8.4. Urinalysis, specific gravity 1.020, pH 5.0. Dip test notable for 3+ protein, 4+ glucose, 1+ ketones, 5+ blood, positive nitrites, 1+ bilirubin, and 2+ leukocyte esterase. Microanalysis with 30 to 40 red and 15 to 20 white blood cells per high-power field and moderate bacteria seen. Urine culture with gamma-hemolytic Strep species over 100,000 colonies. Blood cultures with gram-positive cocci. DIAGNOSTIC IMAGING: Renal ultrasound unremarkable for hydronephrosis. There are right renal cysts. There is equivocal mild bladder wall thickening. ASSESSMENT AND PLAN: The patient is a 63-year-old gentleman with a history of ureteral stone. He underwent ureteral stent placement for the same here approximately two weeks ago with Dr. Johnson. He was discharged home with a Newton catheter. He was supposed to see Dr. Johnson this week, but returned to the hospital with evidence of urosepsis. His white blood cell count is elevated at 23 and his cultures are notable for streptococci in both the blood and the urine. Physical exam is unremarkable as is the renal ultrasound. I discussed these findings today with the patient and his at length. Given his current urosepsis. I would defer any intervention as this may worsen the situation. I would continue Zosyn and vancomycin for antibiotic coverage until cultures are finalized and then adjust the antibiotics accordingly. The patient should be continued on 10 to 14 days of antibiotics. Once his cultures are back, if he is afebrile and his white blood cell count has decreased, he can be discharged home on oral medication. The patient understands that he will need to follow up as an outpatient with Dr. Johnson for further follow up on his stent and stone, and intervention as necessary. He also understands that going with a Newton catheter could result in a similar situation and understands that we will not replace that unless it is absolutely necessary. Thank you for allowing to participate in the care of this nice gentleman. Please do not hesitate to contact me with any questions that you may further have regarding his care. I will see him with you as needed. Andre Barton M.D. DR: ELEONORA JOB#: [id number] CC:
[2018-06-13] VITALS: BP 114/68
[2018-06-13] MEDS: Vancomycin 1gm in D5W 275ml IVPB SCH ×2 (02:30→12:27)
[2018-06-13 04:00] VITALS: BP 124/66
[2018-06-13] MEDS: Morphine Sulfate 2mg/ml Inj(IV/IM USE ONLY) IVP PRN (04:47)
[2018-06-13 06:44] LABS: ANION GAP 8 mmol/L (5-15); BLOOD UREA NITROGEN 13 mg/dL (7-18); CALCIUM 8.2 MG/DL (8.5-10.1); CARBON DIOXIDE 27 MMOL/L (21-32); CHLORIDE 99 MMOL/L (98-107); POTASSIUM 3.7 MMOL/L (3.5-5.1); SODIUM 134 MMOL/L (136-145)
[2018-06-13 06:52] LABS: BASOPHILS % (AUTO) 1.2 % (0.0-2.0); EOSINOPHILS % (AUTO) 2.6 % (0.0-3.0); HEMOGLOBIN 9.7 G/DL (14.2-18.0); LYMPHOCYTES % (AUTO) 20.6 % (20.0-45.0); MEAN CORPUSCULAR VOLUME 93 FL (80-99); MONOCYTES % (AUTO) 7.2 % (1.0-10.0); NEUTROPHILS % (AUTO) 68.4 % (45.0-75.0); PLATELET COUNT 342 K/UL (150-450); RED CELL DISTRIBUTION WIDTH 11.1 % (11.6-14.8); WHITE BLOOD COUNT 10.8 K/UL (4.8-10.8)
[2018-06-13] MEDS: Piperacillin/Tazobactam 3.375 GM in NS 110 ML IVPB SCH (07:07)
[2018-06-13] MEDS: NovoLOG Insulin Flexpen SUBQ SCH ×4 (07:15→21:33)
[2018-06-13 08:00] VITALS: BP 112/64
[2018-06-13] MEDS: sitaGLIPtin 25mg tab ORAL SCH (08:24)
[2018-06-13] MEDS: metFORMIN 500mg tab ORAL SCH ×2 (08:24→17:11)
[2018-06-13] MEDS: Tamsulosin 0.4mg cap ORAL SCH (08:24)
[2018-06-13 12:00] VITALS: BP 136/65
--- NOTE | 2018-06-13 13:37 | Infectious Diseases Prog Note ---
Assessment/Plan Assessment/Plan A: Sepsis with fever and leukocytosis, Bacteremia urinary tract infection with Enterococcus diabetes type 2 with hyperglycemia. hyponatremia. RECOMMENDATION: Discontinue Zosyn. Continue vancomycin will f/u blood culture. Subjective ROS Limited/Unobtainable: No Constitutional: Reports: no symptoms Respiratory: Reports: no symptoms Cardiovascular: Reports: no symptoms Gastrointestinal/Abdominal: Reports: no symptoms Genitourinary: Reports: dysuria Allergies: Coded Allergies: CODEINE (Verified Allergy, Unknown, 01/29/17) Uncoded Allergies: code (Allergy, Severe, Shortness of Breath, 01/21/14) swelling of tongue Objective Vital Signs Last 24 Hour Vital Signs Date Time Temp Pulse Resp B/P (MAP) Pulse Ox O2 Delivery O2 Flow Rate FiO2 06/13/18 12:00 99.0 77 19 136/65 (88) 95 06/13/18 09:00 Room Air 06/13/18 08:00 98.8 67 17 112/64 (80) 95 06/13/18 04:00 99.5 66 18 124/66 (85) 95 06/13/18 00:00 99.4 73 16 114/68 (83) 96 06/12/18 21:00 Room Air 06/12/18 20:00 100.0 79 18 113/68 (83) 95 06/12/18 16:00 97.7 106 18 120/94 (103) 96 Height (Feet): 5 Height (Inches): 7.00 Weight (Pounds): 210 General Appearance: no acute distress HEENT: mucous membranes moist Respiratory/Chest: lungs clear Cardiovascular: normal rate Abdomen: soft, non tender Extremities: no edema Neurologic/Psychiatric: alert, oriented x 3, responsive Microbiology Date/Time Source Procedure Growth Status 06/10/18 23:15 Blood Blood Culture - Preliminary Gram Positive Cocci Resulted 06/10/18 23:00 Blood Blood Culture - Preliminary NO GROWTH AFTER 48 HOURS Resulted 06/10/18 23:30 Nasal Nares MRSA Culture - Final NO METHICILLIN RESISTANT STAPH AUREUS... Complete 06/10/18 23:00 Urine,Clean Catch Urine Culture - Final Enterococcus Faecalis Complete 06/10/18 23:30 Rectum - Final NO CARBAPENEM-RESISTANT ENTEROBACTERI... Complete 06/10/18 23:30 Rectum VRE Culture - Final NO VANCOMYCIN RESISTANT ENTEROCOCCUS ... Complete Laboratory Tests Test 06/12/18 20:20 06/13/18 05:30 White Blood Count 12.8 K/UL (4.8-10.8) H 10.8 K/UL (4.8-10.8) Red Blood Count 3.37 M/UL (4.70-6.10) L 3.00 M/UL (4.70-6.10) L Hemoglobin 10.6 G/DL (14.2-18.0) L 9.7 G/DL (14.2-18.0) L Hematocrit 30.7 % (42.0-52.0) L 28.0 % (42.0-52.0) L Mean Corpuscular Volume 91 FL (80-99) 93 FL (80-99) Mean Corpuscular Hemoglobin 31.6 PG (27.0-31.0) H 32.5 PG (27.0-31.0) H Mean Corpuscular Hemoglobin Concent 34.6 G/DL (32.0-36.0) 34.8 G/DL (32.0-36.0) Red Cell Distribution Width 10.4 % (11.6-14.8) L 11.1 % (11.6-14.8) L Platelet Count 427 K/UL (150-450) 342 K/UL (150-450) Mean Platelet Volume 5.4 FL (6.5-10.1) L 6.0 FL (6.5-10.1) L Neutrophils (%) (Auto) 73.4 % (45.0-75.0) 68.4 % (45.0-75.0) Lymphocytes (%) (Auto) 18.6 % (20.0-45.0) L 20.6 % (20.0-45.0) Monocytes (%) (Auto) 4.9 % (1.0-10.0) 7.2 % (1.0-10.0) Eosinophils (%) (Auto) 1.6 % (0.0-3.0) 2.6 % (0.0-3.0) Basophils (%) (Auto) 1.4 % (0.0-2.0) 1.2 % (0.0-2.0) Sodium Level 132 MMOL/L (136-145) L 134 MMOL/L (136-145) L Potassium Level 4.1 MMOL/L (3.5-5.1) 3.7 MMOL/L (3.5-5.1) Chloride Level 98 MMOL/L (98-107) 99 MMOL/L (98-107) Carbon Dioxide Level 26 MMOL/L (21-32) 27 MMOL/L (21-32) Anion Gap 8 mmol/L (5-15) 8 mmol/L (5-15) Blood Urea Nitrogen 18 mg/dL (7-18) 13 mg/dL (7-18) Creatinine 1.0 MG/DL (0.55-1.30) 1.0 MG/DL (0.55-1.30) Estimat Glomerular Filtration Rate > 60 mL/min (>60) > 60 mL/min (>60) Glucose Level 284 MG/DL (74-106) H 221 MG/DL (74-106) H Calcium Level 8.3 MG/DL (8.5-10.1) L 8.2 MG/DL (8.5-10.1) L Current Medications Medications (Trade) Dose Ordered Sig/Billy Route PRN Reason Start Time Stop Time Status Last Admin Dose Admin Acetaminophen (Tylenol) 650 mg Q4H PRN ORAL Mild Pain/Temp > 100.5 06/11/18 07:00 07/11/18 06:59 06/12/18 08:48 Atorvastatin Calcium (Lipitor) 10 mg BEDTIME ORAL 06/11/18 21:00 07/11/18 20:59 06/11/18 21:28 Dextrose (Dextrose 50%) 25 ml Q30M PRN IV Hypoglycemia 06/11/18 07:15 07/11/18 07:14 Dextrose (Dextrose 50%) 50 ml Q30M PRN IV Hypoglycemia 06/11/18 07:15 07/11/18 07:14 Ibuprofen (Motrin) 600 mg Q6H PRN ORAL moderate pain 06/11/18 07:15 07/11/18 06:59 Insulin Aspart (NovoLOG) BEFORE MEALS AND HS SUBQ 06/11/18 11:30 07/11/18 11:29 06/13/18 12:28 Metformin HCl (Glucophage) 500 mg TWICE A DAY ORAL 06/11/18 09:00 07/11/18 08:59 06/13/18 08:24 Morphine Sulfate (Morphine Sulfate) 2 mg Q2H PRN IVP For Pain 06/11/18 09:00 06/18/18 08:59 06/13/18 04:47 Phenazopyridine HCl (Pyridium) 100 mg BID ORAL 06/12/18 09:00 07/12/18 08:59 06/13/18 08:28 Piperacillin Sod/ Tazobactam Sod 3.375 gm/Sodium Chloride 110 ml @ 27.5 mls/hr EVERY 8 HOURS IVPB 06/11/18 14:00 06/16/18 13:59 06/13/18 07:07 Sitagliptin Phosphate (Januvia) 25 mg DAILY ORAL 06/11/18 09:00 07/11/18 08:59 06/13/18 08:24 Tamsulosin HCl (Flomax) 0.4 mg DAILY ORAL 06/11/18 09:00 07/11/18 08:59 06/13/18 08:24 Vancomycin HCl (Vanco rx to dose) 1 ea DAILY PRN MISC Per rx protocol 06/12/18 11:00 07/12/18 10:59 Vancomycin HCl 1 gm/Dextrose 275 ml @ 183.708 mls/hr Q12H IVPB 06/13/18 01:00 06/18/18 00:59 06/13/18 12:27 Olivier Barron MD Jun 13, 2018 13:37
[2018-06-13 16:00] VITALS: BP 110/69
[2018-06-13] MEDS ORDERED: Tubing IV Secondary IV ONE (17:17)
[2018-06-13] MEDS ORDERED: NS 500ML ONE (17:17)
[2018-06-13 20:00] VITALS: BP 105/50
--- NOTE | 2018-06-13 20:35 | General Progress Note ---
Assessment/Plan Problem List: (1) Leg pain ICD Codes: M79.606 - Pain in leg, unspecified SNOMED: 64995012 (2) Ankle sprain ICD Codes: S93.409A - Sprain of unspecified ligament of unspecified ankle, initial encounter SNOMED: 51912133 (3) Peripheral edema ICD Codes: R60.9 - Edema, unspecified SNOMED: 015737925 (4) Obstructive uropathy ICD Codes: N13.9 - Obstructive and reflux uropathy, unspecified SNOMED: 9676811 Status: progressing Assessment/Plan: s/p urethral stent uti kidney stone r/o pyel left a message to dr etienne urologist to see and recommend what to do w his urethral stent afebriel Subjective ROS Limited/Unobtainable: Yes Allergies: Coded Allergies: CODEINE (Verified Allergy, Unknown, 01/29/17) Uncoded Allergies: code (Allergy, Severe, Shortness of Breath, 01/21/14) swelling of tongue Objective Last 24 Hour Vital Signs Date Time Temp Pulse Resp B/P (MAP) Pulse Ox O2 Delivery O2 Flow Rate FiO2 06/13/18 16:00 98.8 67 17 110/69 (83) 95 06/13/18 12:00 99.0 77 19 136/65 (88) 95 06/13/18 09:00 Room Air 06/13/18 08:00 98.8 67 17 112/64 (80) 95 06/13/18 04:00 99.5 66 18 124/66 (85) 95 06/13/18 00:00 99.4 73 16 114/68 (83) 96 06/12/18 21:00 Room Air Intake and Output 06/12/18 06/13/18 18:59 06:59 Intake Total 590.0 ml 867.5 ml Balance 590.0 ml 867.5 ml Intake Oral 480 ml 840 ml IV Total 110.0 ml 27.5 ml # Voids 6 Laboratory Tests 06/13/18 05:30: White Blood Count 10.8, Red Blood Count 3.00L, Hemoglobin 9.7L, Hematocrit 28.0L , Mean Corpuscular Volume 93, Mean Corpuscular Hemoglobin 32.5H, Mean Corpuscular Hemoglobin Concent 34.8, Red Cell Distribution Width 11.1L, Platelet Count 342, Mean Platelet Volume 6.0L, Neutrophils (%) (Auto) 68.4, Lymphocytes (%) (Auto) 20.6, Monocytes (%) (Auto) 7.2, Eosinophils (%) (Auto) 2.6, Basophils (%) (Auto) 1.2, Sodium Level 134L, Potassium Level 3.7, Chloride Level 99, Carbon Dioxide Level 27, Anion Gap 8, Blood Urea Nitrogen 13, Creatinine 1.0, Estimat Glomerular Filtration Rate > 60, Glucose Level 221H, Calcium Level 8.2L Height (Feet): 5 Height (Inches): 7.00 Weight (Pounds): 210 Abdomen: tender Riley Alfred MD Jun 13, 2018 20:35
[2018-06-14] VITALS: BP 122/62
[2018-06-14] MEDS: Vancomycin 1gm in D5W 275ml IVPB SCH (01:00)
[2018-06-14 04:00] VITALS: BP_SYST 104; BP_SYST 123; BP_DIAS 50; BP_DIAS 72
[2018-06-14] MEDS: NovoLOG Insulin Flexpen SUBQ SCH ×4 (06:11→22:06)
[2018-06-14 08:00] VITALS: BP 117/75
[2018-06-14] MEDS: sitaGLIPtin 25mg tab ORAL SCH (09:21)
[2018-06-14] MEDS: metFORMIN 500mg tab ORAL SCH ×2 (09:22→17:28)
[2018-06-14] MEDS: Tamsulosin 0.4mg cap ORAL SCH (09:22)
[2018-06-14 12:00] VITALS: BP 109/62
--- NOTE | 2018-06-14 12:02 | Infectious Diseases Prog Note ---
Assessment/Plan Assessment/Plan A: Sepsis with fever and leukocytosis, Enterococcus sepsis urinary tract infection with Enterococcus diabetes type 2 with hyperglycemia. hyponatremia. RECOMMENDATION: Discontinue Zosyn. Continue vancomycin will f/u blood culture. Subjective ROS Limited/Unobtainable: No Constitutional: Reports: no symptoms Respiratory: Reports: no symptoms Cardiovascular: Reports: no symptoms Gastrointestinal/Abdominal: Reports: no symptoms Genitourinary: Reports: dysuria Allergies: Coded Allergies: CODEINE (Verified Allergy, Unknown, 01/29/17) Uncoded Allergies: code (Allergy, Severe, Shortness of Breath, 01/21/14) swelling of tongue Objective Vital Signs Last 24 Hour Vital Signs Date Time Temp Pulse Resp B/P (MAP) Pulse Ox O2 Delivery O2 Flow Rate FiO2 06/14/18 09:00 Room Air 06/14/18 08:00 97.8 63 18 117/75 (89) 98 06/14/18 04:00 97.3 52 20 123/72 (89) 98 06/14/18 00:00 97.3 59 18 122/62 (82) 96 06/13/18 21:00 Room Air 06/13/18 20:00 98.8 70 18 105/50 (68) 95 06/13/18 16:00 98.8 67 17 110/69 (83) 95 Height (Feet): 5 Height (Inches): 7.00 Weight (Pounds): 210 General Appearance: no acute distress HEENT: mucous membranes moist Respiratory/Chest: lungs clear Cardiovascular: normal rate Abdomen: soft, non tender Extremities: no edema Neurologic/Psychiatric: alert, oriented x 3, responsive Laboratory Tests Test 06/14/18 11:50 Vancomycin Level Trough Pending Current Medications Medications (Trade) Dose Ordered Sig/Billy Route PRN Reason Start Time Stop Time Status Last Admin Dose Admin Acetaminophen (Tylenol) 650 mg Q4H PRN ORAL Mild Pain/Temp > 100.5 06/11/18 07:00 07/11/18 06:59 06/12/18 08:48 Atorvastatin Calcium (Lipitor) 10 mg BEDTIME ORAL 06/11/18 21:00 07/11/18 20:59 06/13/18 21:23 Dextrose (Dextrose 50%) 25 ml Q30M PRN IV Hypoglycemia 06/11/18 07:15 07/11/18 07:14 Dextrose (Dextrose 50%) 50 ml Q30M PRN IV Hypoglycemia 06/11/18 07:15 07/11/18 07:14 Ibuprofen (Motrin) 600 mg Q6H PRN ORAL moderate pain 06/11/18 07:15 07/11/18 06:59 06/13/18 21:23 Insulin Aspart (NovoLOG) BEFORE MEALS AND HS SUBQ 06/11/18 11:30 07/11/18 11:29 06/14/18 11:32 Metformin HCl (Glucophage) 500 mg TWICE A DAY ORAL 06/11/18 09:00 07/11/18 08:59 06/14/18 09:22 Morphine Sulfate (Morphine Sulfate) 2 mg Q2H PRN IVP For Pain 06/11/18 09:00 06/18/18 08:59 06/13/18 04:47 Phenazopyridine HCl (Pyridium) 100 mg BID ORAL 06/12/18 09:00 07/12/18 08:59 06/14/18 09:22 Sitagliptin Phosphate (Januvia) 25 mg DAILY ORAL 06/11/18 09:00 07/11/18 08:59 06/14/18 09:21 Sodium Chloride 1,000 ml @ 50 mls/hr Q20H IV 06/13/18 14:00 07/13/18 13:59 06/13/18 14:51 Tamsulosin HCl (Flomax) 0.4 mg DAILY ORAL 06/11/18 09:00 07/11/18 08:59 06/14/18 09:22 Vancomycin HCl (Vanco rx to dose) 1 ea DAILY PRN MISC Per rx protocol 06/12/18 11:00 07/12/18 10:59 Vancomycin HCl 1 gm/Dextrose 275 ml @ 183.708 mls/hr Q12H IVPB 06/13/18 01:00 06/18/18 00:59 06/14/18 01:00 Olivier Barron MD Jun 14, 2018 12:02
[2018-06-14] MEDS: Vancomycin 1.5gm Premix IVPB SCH (13:41)
--- NOTE | 2018-06-14 14:38 | Consultation ---
History of Present Illness General Chief Complaint: Abdominal Pain Present Illness Allergies: Coded Allergies: CODEINE (Verified Allergy, Unknown, 01/29/17) Uncoded Allergies: code (Allergy, Severe, Shortness of Breath, 01/21/14) swelling of tongue Medication History Scheduled Atorvastatin Calcium* (Lipitor*), Unknown Dose ORAL BEDTIME, (Reported) Metformin Hcl* (Metformin Hcl*), Unknown Dose ORAL TWICE A DAY, (Reported) Sitagliptin* (Januvia*), Unknown Dose ORAL DAILY, (Reported) Tamsulosin HCl (Flomax), 0.4 MG ORAL DAILY, (Reported) Miscellaneous Medications Ibuprofen* (Motrin*), Unknown Dose ORAL, (Reported) Durable Medical Equipment Comp.stocking,Knee,Regular,Med (Truform Compression Stocking), EACH , (DME) Patient History Healthcare decision maker Resuscitation status Full Code Advanced Directive on File Physical Exam Last 24 Hour Vital Signs Date Time Temp Pulse Resp B/P (MAP) Pulse Ox O2 Delivery O2 Flow Rate FiO2 06/14/18 12:00 97.4 18 18 109/62 (78) 98 66 06/14/18 09:00 Room Air 06/14/18 08:00 97.8 63 18 117/75 (89) 98 06/14/18 04:00 97.3 52 20 123/72 (89) 98 06/14/18 00:00 97.3 59 18 122/62 (82) 96 06/13/18 21:00 Room Air 06/13/18 20:00 98.8 70 18 105/50 (68) 95 06/13/18 16:00 98.8 67 17 110/69 (83) 95 Intake and Output 06/13/18 06/14/18 19:00 07:00 Intake Total 240 ml 500 ml Balance 240 ml 500 ml Intake Oral 240 ml 450 ml IV Total 50 ml # Voids 4 5 Laboratory Tests Test 06/14/18 11:50 Vancomycin Level Trough 10.7 ug/mL (5.0-12.0) Height (Feet): 5 Height (Inches): 7.00 Weight (Pounds): 210 Medications Current Medications Medications (Trade) Dose Ordered Sig/Billy Route PRN Reason Start Time Stop Time Status Last Admin Dose Admin Acetaminophen (Tylenol) 650 mg Q4H PRN ORAL Mild Pain/Temp > 100.5 06/11/18 07:00 07/11/18 06:59 06/12/18 08:48 Atorvastatin Calcium (Lipitor) 10 mg BEDTIME ORAL 06/11/18 21:00 07/11/18 20:59 06/13/18 21:23 Dextrose (Dextrose 50%) 25 ml Q30M PRN IV Hypoglycemia 06/11/18 07:15 07/11/18 07:14 Dextrose (Dextrose 50%) 50 ml Q30M PRN IV Hypoglycemia 06/11/18 07:15 07/11/18 07:14 Ibuprofen (Motrin) 600 mg Q6H PRN ORAL moderate pain 06/11/18 07:15 07/11/18 06:59 06/13/18 21:23 Insulin Aspart (NovoLOG) BEFORE MEALS AND HS SUBQ 06/11/18 11:30 07/11/18 11:29 06/14/18 11:32 Metformin HCl (Glucophage) 500 mg TWICE A DAY ORAL 06/11/18 09:00 07/11/18 08:59 06/14/18 09:22 Morphine Sulfate (Morphine Sulfate) 2 mg Q2H PRN IVP For Pain 06/11/18 09:00 06/18/18 08:59 06/13/18 04:47 Sitagliptin Phosphate (Januvia) 25 mg DAILY ORAL 06/11/18 09:00 07/11/18 08:59 06/14/18 09:21 Sodium Chloride 1,000 ml @ 50 mls/hr Q20H IV 06/13/18 14:00 07/13/18 13:59 06/13/18 14:51 Tamsulosin HCl (Flomax) 0.4 mg DAILY ORAL 06/11/18 09:00 07/11/18 08:59 06/14/18 09:22 Vancomycin HCl (Vanco rx to dose) 1 ea DAILY PRN MISC Per rx protocol 06/12/18 11:00 07/12/18 10:59 Vancomycin HCl/ Dextrose 275 ml @ 137.5 mls/ hr Q12H IVPB 06/14/18 14:00 06/19/18 13:59 06/14/18 13:41 Assessment/Plan Assessment/Plan: Hematology Consultation REQ MD: Riley Alfred RFC: Anemia eval, and prior leukocytosis DOS: 06/14/18 ID This is a 63y old male with a history of left obstructive uropathy secondary to a ureteral stone. he was here recently and lelft ama. He came back and got admitted the next day. Subsequently, he had a stent placed and kidney stone removal. He also had a catheter placed on discharge. He follow-up with Dr. Johnson's office 2 days ago. He was placed on Cipro but did not take it until today. He spiked a fever 102 at home. Also felt nauseous and 5 out of 10 pain. Son brought him here to be evaluated. Patient denies any diarrhea. No abdominal pain. He remains anemic and htus hematology now consulted. Allergies: CODEINE (Verified Allergy, Unknown, 01/29/17) code (Allergy, Severe, Shortness of Breath, 01/21/14) swelling of tongue Past Medical History: see triage record, old chart reviewed Past Surgical History: other Pertinent Family History: none Social History: Denies: smoking Immunizations: other Reviewed Nursing Documentation: PMH: Agreed; PSxH: Agreed Past Medical History: No History, Except For Hx Cardiac Problems: No Hx Diabetes: Yes - type 2 diabetes Hx Cancer: No Hx Gastrointestinal Problems: No Hx Cerebrovascular Accident: Yes - 2012 ROS Constitutional: Reports: fever Eye: Denies: eye pain, blurred vision ENT: Denies: ear pain, nose congestion, throat swelling Respiratory: Denies: cough, shortness of breath Cardiovascular: Denies: chest pain, palpitations Gastrointestinal: Reports: nausea, vomiting Musculoskeletal: Denies: back pain, joint pain Skin: Denies: rash Neurological: Denies: headache, numbness Endocrine: Denies: increased thirst Hematologic/Lymphatic: Denies: easy bruising All Other Systems: negative except PE Vital Signs Date Time Temp Pulse Resp B/P (MAP) Pulse Ox O2 Delivery O2 Flow Rate FiO2 06/13/18 22:44 101.5 88 16 118/71 97 Room Air vitals without fevers General Appearance: well appearing Head: normocephalic, atraumatic Eyes: bilateral eye PERRL, bilateral eye EOMI ENT: hearing grossly normal, normal pharynx Neck: full range of motion, supple, no meningismus Respiratory: chest non-tender, lungs clear Cardiovascular: regular rate, rhythm, no murmur Gastrointestinal: normal bowel sounds Musculoskeletal: back normal, gait/station normal Neurologic: alert, oriented x3 Psychiatric: mood/affect normal Laboratory Tests Test 06/14/18 11:50 Vancomycin Level Trough 10.7 ug/mL (5.0-12.0) Assessment and Recs: # Anemia of chronic disease (or of iron deficiency) due to underlying chronic medical issues, multifactorial --> Anemia workup has been ordered, rule out gi bleed --> No evidence of hemolysis is noted, peripheral smear has been reviewed. --> Hgb goal >7. Transfuse prn. --> Epogen or iron at this time is not particularly indicated --> Medications have been reviewed --> evaluate with Gi team prn --> transfuse if hgb is < 7 (will trend CBC daily) # Leukocytosis is likely related to underlying infection --> on abx has been started --> as per ID recs --> with rodriguez catheter in place --> trend 18k --> 10k # UTI (urinary tract infection) # Hyperglycemia due to type 2 diabetes mellitus # Hyponatremia currently improving The timing of this note does not necessarily reflect the time of the patient was seen. Greatly appreciate consultation! Kurt Alfaro MD Jun 14, 2018 14:38
[2018-06-14 15:44] LABS: BASOPHILS % (AUTO) 0.8 % (0.0-2.0); EOSINOPHILS % (AUTO) 2.5 % (0.0-3.0); HEMATOCRIT 28.4 % (42.0-52.0); HEMOGLOBIN 9.6 G/DL (14.2-18.0); LYMPHOCYTES % (AUTO) 17.2 % (20.0-45.0); MEAN CORPUSCULAR VOLUME 93 FL (80-99); MONOCYTES % (AUTO) 4.2 % (1.0-10.0); NEUTROPHILS % (AUTO) 75.3 % (45.0-75.0); PLATELET COUNT 430 K/UL (150-450); RED BLOOD COUNT 3.05 M/UL (4.70-6.10); RED CELL DISTRIBUTION WIDTH 11.1 % (11.6-14.8); WHITE BLOOD COUNT 11.6 K/UL (4.8-10.8)
[2018-06-14 15:56] LABS: INR 1.1 (0.9-1.1)
[2018-06-14 16:00] VITALS: BP 121/63
[2018-06-14 16:15] LABS: FERRITIN 1075 NG/ML (8-388)
[2018-06-14 16:29] LABS: % IRON SATURATION 17 % (15-50); IRON 27 ug/dL (50-175); TOTAL IRON BINDING CAPACITY 161 ug/dL (250-450)
[2018-06-14 20:00] VITALS: BP 109/65
--- NOTE | 2018-06-14 20:58 | General Progress Note ---
Assessment/Plan Problem List: (1) Leg pain ICD Codes: M79.606 - Pain in leg, unspecified SNOMED: 07977367 (2) Ankle sprain ICD Codes: S93.409A - Sprain of unspecified ligament of unspecified ankle, initial encounter SNOMED: 27960321 (3) Peripheral edema ICD Codes: R60.9 - Edema, unspecified SNOMED: 054347534 (4) Obstructive uropathy ICD Codes: N13.9 - Obstructive and reflux uropathy, unspecified SNOMED: 4614811 Status: progressing Assessment/Plan: s/p urethral stent uti kidney stone r/o pyel w his urethral stent flank pain Subjective ROS Limited/Unobtainable: Yes Allergies: Coded Allergies: CODEINE (Verified Allergy, Unknown, 01/29/17) Uncoded Allergies: code (Allergy, Severe, Shortness of Breath, 01/21/14) swelling of tongue Objective Last 24 Hour Vital Signs Date Time Temp Pulse Resp B/P (MAP) Pulse Ox O2 Delivery O2 Flow Rate FiO2 06/14/18 16:00 98.1 72 19 121/63 (82) 96 06/14/18 12:00 97.4 18 18 109/62 (78) 98 66 06/14/18 09:00 Room Air 06/14/18 08:00 97.8 63 18 117/75 (89) 98 06/14/18 04:00 97.3 52 20 123/72 (89) 98 06/14/18 00:00 97.3 59 18 122/62 (82) 96 06/13/18 21:00 Room Air Intake and Output 06/13/18 06/14/18 18:59 06:59 Intake Total 240 ml 450 ml Balance 240 ml 450 ml Intake Oral 240 ml 450 ml # Voids 4 5 Laboratory Tests 06/14/18 11:50: Vancomycin Level Trough 10.7 06/14/18 15:11: White Blood Count 11.6H, Red Blood Count 3.05L, Hemoglobin 9.6L, Hematocrit 28.4L, Mean Corpuscular Volume 93, Mean Corpuscular Hemoglobin 31.4H, Mean Corpuscular Hemoglobin Concent 33.7, Red Cell Distribution Width 11.1L, Platelet Count 430, Mean Platelet Volume 5.3L, Neutrophils (%) (Auto) 75.3H, Lymphocytes (%) (Auto) 17.2L, Monocytes (%) (Auto) 4.2, Eosinophils (%) (Auto) 2.5, Basophils (%) (Auto) 0.8, Differential Total Cells Counted 100, Neutrophils % (Manual) 79H, Lymphocytes % (Manual) 14L, Monocytes % (Manual) 6, Eosinophils % (Manual) 1, Basophils % (Manual) 0, Band Neutrophils 0, Platelet Estimate IncreasedH, Platelet Morphology , Giant Platelets Occasional, Polychromasia 1+, Prothrombin Time 12.0H, Prothromb Time International Ratio 1.1 , Iron Level 27L, Total Iron Binding Capacity 161L, Percent Iron Saturation 17, Unsaturated Iron Binding 134, Ferritin 1075H, Vitamin B12 Level 636, Thyroid Stimulating Hormone (TSH) 0.949 Height (Feet): 5 Height (Inches): 7.00 Weight (Pounds): 210 Cardiovascular: normal rate Respiratory/Chest: lungs clear Abdomen: soft Riley Alfred MD Jun 14, 2018 20:58
[2018-06-15] VITALS: BP 109/51
[2018-06-15] MEDS: Vancomycin 1.5gm Premix IVPB SCH ×2 (02:44→14:33)
[2018-06-15 04:00] VITALS: BP 156/79
[2018-06-15] MEDS: NovoLOG Insulin Flexpen SUBQ SCH ×2 (07:02→11:50)
[2018-06-15 08:00] VITALS: BP 117/55
[2018-06-15] MEDS: Tamsulosin 0.4mg cap ORAL SCH (10:05)
[2018-06-15] MEDS: metFORMIN 500mg tab ORAL SCH (10:05)
[2018-06-15] MEDS: sitaGLIPtin 25mg tab ORAL SCH (10:05)
--- NOTE | 2018-06-15 11:39 | Infectious Diseases Prog Note ---
Assessment/Plan Assessment/Plan A: Sepsis with fever and leukocytosis, Enterococcus sepsis secondary to UTI urinary tract infection with Enterococcus diabetes type 2 with hyperglycemia. hyponatremia. RECOMMENDATION: Continue vancomycin in hospital Recent 2D echocardiogram negative for infective endocarditis Can be discharged to home with PO Amoxicillin X 10 days Outpatient follow up by urologist Subjective ROS Limited/Unobtainable: Yes Constitutional: Reports: no symptoms Respiratory: Reports: no symptoms Gastrointestinal/Abdominal: Reports: no symptoms Genitourinary: Reports: dysuria Allergies: Coded Allergies: CODEINE (Verified Allergy, Unknown, 01/29/17) Uncoded Allergies: code (Allergy, Severe, Shortness of Breath, 01/21/14) swelling of tongue Objective Vital Signs Last 24 Hour Vital Signs Date Time Temp Pulse Resp B/P (MAP) Pulse Ox O2 Delivery O2 Flow Rate FiO2 06/15/18 09:00 Room Air 06/15/18 08:00 97.9 63 20 117/55 (75) 97 06/15/18 04:00 98.4 68 18 156/79 (104) 96 06/15/18 00:00 98.9 71 18 109/51 (70) 97 06/14/18 21:00 Room Air 06/14/18 20:00 98.0 74 18 109/65 (80) 95 06/14/18 16:00 98.1 72 19 121/63 (82) 96 06/14/18 12:00 97.4 18 18 109/62 (78) 98 66 Height (Feet): 5 Height (Inches): 7.00 Weight (Pounds): 210 General Appearance: no acute distress HEENT: mucous membranes moist Respiratory/Chest: lungs clear Cardiovascular: normal rate Abdomen: soft, non tender Extremities: no edema Neurologic/Psychiatric: alert, oriented x 3, responsive Laboratory Tests Test 06/14/18 11:50 06/14/18 15:11 Vancomycin Level Trough 10.7 ug/mL (5.0-12.0) White Blood Count 11.6 K/UL (4.8-10.8) H Red Blood Count 3.05 M/UL (4.70-6.10) L Hemoglobin 9.6 G/DL (14.2-18.0) L Hematocrit 28.4 % (42.0-52.0) L Mean Corpuscular Volume 93 FL (80-99) Mean Corpuscular Hemoglobin 31.4 PG (27.0-31.0) H Mean Corpuscular Hemoglobin Concent 33.7 G/DL (32.0-36.0) Red Cell Distribution Width 11.1 % (11.6-14.8) L Platelet Count 430 K/UL (150-450) Mean Platelet Volume 5.3 FL (6.5-10.1) L Neutrophils (%) (Auto) 75.3 % (45.0-75.0) H Lymphocytes (%) (Auto) 17.2 % (20.0-45.0) L Monocytes (%) (Auto) 4.2 % (1.0-10.0) Eosinophils (%) (Auto) 2.5 % (0.0-3.0) Basophils (%) (Auto) 0.8 % (0.0-2.0) Differential Total Cells Counted 100 Neutrophils % (Manual) 79 % (45-75) H Lymphocytes % (Manual) 14 % (20-45) L Monocytes % (Manual) 6 % (1-10) Eosinophils % (Manual) 1 % (0-3) Basophils % (Manual) 0 % (0-2) Band Neutrophils 0 % (0-8) Platelet Estimate Increased H Platelet Morphology Giant Platelets Occasional Polychromasia 1+ Prothrombin Time 12.0 SEC (9.30-11.50) H Prothromb Time International Ratio 1.1 (0.9-1.1) Iron Level 27 ug/dL (50-175) L Total Iron Binding Capacity 161 ug/dL (250-450) L Percent Iron Saturation 17 % (15-50) Unsaturated Iron Binding 134 ug/dL (112-346) Ferritin 1075 NG/ML (8-388) H Vitamin B12 Level 636 PG/ML (193-986) Thyroid Stimulating Hormone (TSH) 0.949 uiU/mL (0.358-3.740) Current Medications Medications (Trade) Dose Ordered Sig/Billy Route PRN Reason Start Time Stop Time Status Last Admin Dose Admin Acetaminophen (Tylenol) 650 mg Q4H PRN ORAL Mild Pain/Temp > 100.5 06/11/18 07:00 07/11/18 06:59 06/12/18 08:48 Atorvastatin Calcium (Lipitor) 10 mg BEDTIME ORAL 06/11/18 21:00 07/11/18 20:59 06/14/18 22:06 Dextrose (Dextrose 50%) 25 ml Q30M PRN IV Hypoglycemia 06/11/18 07:15 07/11/18 07:14 Dextrose (Dextrose 50%) 50 ml Q30M PRN IV Hypoglycemia 06/11/18 07:15 07/11/18 07:14 Ibuprofen (Motrin) 600 mg Q6H PRN ORAL moderate pain 06/11/18 07:15 07/11/18 06:59 06/13/18 21:23 Insulin Aspart (NovoLOG) BEFORE MEALS AND HS SUBQ 06/11/18 11:30 07/11/18 11:29 06/15/18 07:02 Metformin HCl (Glucophage) 500 mg TWICE A DAY ORAL 06/11/18 09:00 07/11/18 08:59 06/15/18 10:05 Morphine Sulfate (Morphine Sulfate) 2 mg Q2H PRN IVP For Pain 06/11/18 09:00 06/18/18 08:59 06/13/18 04:47 Sitagliptin Phosphate (Januvia) 25 mg DAILY ORAL 06/11/18 09:00 07/11/18 08:59 06/15/18 10:05 Sodium Chloride 1,000 ml @ 50 mls/hr Q20H IV 06/13/18 14:00 07/13/18 13:59 06/15/18 06:00 Tamsulosin HCl (Flomax) 0.4 mg DAILY ORAL 06/11/18 09:00 07/11/18 08:59 06/15/18 10:05 Vancomycin HCl (Vanco rx to dose) 1 ea DAILY PRN MISC Per rx protocol 06/12/18 11:00 07/12/18 10:59 Vancomycin HCl/ Dextrose 275 ml @ 137.5 mls/ hr Q12H IVPB 06/14/18 14:00 06/19/18 13:59 06/15/18 02:44 Olivier Barron MD Jun 15, 2018 11:38
[2018-06-15 12:00] VITALS: BP 126/77
[2018-06-15] MEDS ORDERED: AMOXICILLIN500 MG ORAL (13:41)
--- NOTE | 2018-06-15 15:37 | General Progress Note ---
Assessment/Plan Status: progressing Assessment/Plan: Assessment and Recs: # Anemia of chronic disease due to underlying chronic medical issues, multifactorial, ferritin is 1075 --> Anemia workup has been ordered, rule out gi bleed --> No evidence of hemolysis is noted, peripheral smear has been reviewed. --> Hgb goal >7. Transfuse prn. --> Epogen or iron at this time is not particularly indicated --> Medications have been reviewed --> evaluate with Gi team prn --> transfuse if hgb is < 7 (will trend CBC daily) # Leukocytosis is likely related to underlying infection --> on abx that have been started --> as per ID recs, to DC with home po abx --> with rodriguez catheter in place --> trend 18k --> 10k -->12 # UTI (urinary tract infection) # Hyperglycemia due to type 2 diabetes mellitus # Hyponatremia currently improving The timing of this note does not necessarily reflect the time of the patient was seen. Greatly appreciate consultation! Subjective HEENT: Denies: no symptoms, eye pain, blurred vision, tearing, double vision, ear pain, ear discharge, nose pain, nose congestion, throat pain, throat swelling, mouth pain, mouth swelling, other Respiratory: Denies: no symptoms, cough, orthopnea, shortness of breath, SOB with excertion, SOB at rest, sputum, stridor, wheezing, other Gastrointestinal/Abdominal: Denies: no symptoms, abdomen distended, abdominal pain, black stools, tarry stools, blood in stool, constipated, diarrhea, difficulty swallowing, nausea, poor appetite, poor fluid intake, rectal bleeding , vomiting, other Genitourinary: Denies: no symptoms, burning, discharge, frequency, flank pain, hematuria, incontinence, pain, urgency, other Neurologic/Psychiatric: Denies: no symptoms, anxiety, depressed, emotional problems, headache, numbness, paresthesia, pre-existing deficit, seizure, tingling, tremors, weakness, other Endocrine: Denies: no symptoms, excessive sweating, flushing, intolerance to cold, intolerance to heat, increased hunger, increased thirst, increased urine, unexplained weight gain, unexplained weight loss, other Hematologic/Lymphatic: Denies: no symptoms, anemia, easy bleeding, easy bruising, other Allergies: Coded Allergies: CODEINE (Verified Allergy, Unknown, 12/10/17) Uncoded Allergies: code (Allergy, Severe, Shortness of Breath, 01/21/14) swelling of tongue Subjective 06/15: potentially to be discharged soon, no complaints noted, on po abx Objective Last 24 Hour Vital Signs Date Time Temp Pulse Resp B/P (MAP) Pulse Ox O2 Delivery O2 Flow Rate FiO2 06/15/18 12:00 97.9 72 20 126/77 (93) 96 06/15/18 09:00 Room Air 06/15/18 08:00 97.9 63 20 117/55 (75) 97 06/15/18 04:00 98.4 68 18 156/79 (104) 96 06/15/18 00:00 98.9 71 18 109/51 (70) 97 06/14/18 21:00 Room Air 06/14/18 20:00 98.0 74 18 109/65 (80) 95 06/14/18 16:00 98.1 72 19 121/63 (82) 96 Intake and Output 06/14/18 06/15/18 19:00 07:00 Intake Total 965 ml 600 ml Balance 965 ml 600 ml Intake Oral 240 ml IV Total 725 ml 600 ml # Voids 4 7 # Bowel Movements 1 3 Height (Feet): 5 Height (Inches): 7.00 Weight (Pounds): 210 Objective Vitals without fevers General Appearance: well appearing Head: normocephalic, atraumatic Eyes: bilateral eye PERRL, bilateral eye EOMI ENT: hearing grossly normal, normal pharynx Neck: full range of motion, supple, no meningismus Respiratory: chest non-tender, lungs clear Cardiovascular: regular rate, rhythm, no murmur Gastrointestinal: normal bowel sounds Musculoskeletal: back normal, gait/station normal Neurologic: alert, oriented x3 Psychiatric: mood/affect normal Kurt Alfaro MD Jun 15, 2018 15:37
[2018-06-15] MEDS ORDERED: 1/2 NS 1000ml IV ONE (16:09)
--- NOTE | 2018-06-18 08:25 | Discharge Summary ---
Discharge Summary Discharge Summary _ DATE OF ADMISSION: 06/11/2018 DATE OF DISCHARGE: 06/15/2018 DISCHARGED BY: Dr Alfred REASON FOR ADMISSION: 63 years old male with past medical history of left obstructive uropathy secondary to ureteral stone, diabetes mellitus, BPH, hyperlipidemia, status post recent cystoscopy with a double-J stent placement on the left side about 2 weeks ago, presented to to ED with complaints of fever of 102 at home. Patient felt nauseous. Patient also reported lower abdominal pain 5 out of 10 on a scale 1-10. Patient's son brought him for evaluation . Patient was seen in the hospital about 2 weeks ago due to left-sided abdominal and flank pain. CT scan at that time revealed 5 mm stone in the proximal left ureter. Patient subsequently undergone cystoscopy with double-J stent placement. Patient was stabilized and sent home with oral antibiotic . Patient left hospital with a Newton catheter and was supposed to see urologist as outpatient. Patient did not follow up with urologist as outpatient. Patient did not start his antibiotic until that morning prior to presentation to ED . Patient denied diarrhea. Upon evaluation patient was febrile 101.5. Laboratory work-up revealed significant leukocytosis WBC 23.1. Hemoglobin 12.8 , hematocrit 25.5. Platelet count 377. Sodium 129 . BUN 25, creatinine 1.2. Glucose 262. Urinalysis was grossly positive for UTI.. Patient was subsequently admitted for further management CONSULTANTS: ID specialist Dr. Barron wireless architect/oncologist Dr. Alfaro urology Dr. Barton [facility] COURSE: Patient admitted and started on IV fluids and empiric antibiotics. ID specialist and urologist closely followed. Blood cultures revealed Enterococci faecalis. Urine culture revealed Enterococci faecalis. Antibiotic regimen was optimized as per ID specialist recommendation. Pyridium was provided for support. While in the hospital, patient was on vancomycin. Patient was discharged home on oral amoxicillin to 10 more days to complete the course. Patient recently had an echocardiogram, which was negative for infective endocarditis. Patient was on the IV hydration. Newton catheter was discontinued Renal ultrasound revealed no evidence of hydronephrosis. Mild bladder wall thickening noted. Urologist seen and evaluated patient. Per urologist, given current infection, defer any surgical intervention. Urologist recommended complete antibiotic course for 10 to 14 days and follow- up as outpatient with urologist for further assessment and management of his stent and stone, and possible intervention if necessary. Flomax continued. Pain management was addressed. Bowel regimen instituted. Patient was on IV hydration with normal saline. Hyponatremia resolved, sodium 134 prior to discharge. Noted some drop in hemoglobin. Automobile Assembler followed. Anemia work-up revealed evidence of anemia of chronic disease due to underlying chronic medical issues. B12 level stable. Stool for occult blood was negative. No evidence of hemolysis noted. Hemoglobin and hematocrit were closely monitor with goal to keep hemoglobin above 7. Prior to discharge hemoglobin 9.6, hematocrit 28.4. Blood sugar was managed with metformin , Januvia and sliding scale of insulin as needed. Hemoglobin A1c at goal -6.5. Patient clinically stabilized and was ready for discharge home: urinated freely , fever resolved, WBC down to 11.6. Outpatient follow-up with urologist. FINAL DIAGNOSES: Sepsis with Enterococci bacteremia due to UTI Enterococci UTI Diabetes mellitus type 2 with hyperglycemia Hyponatremia Anemia of chronic disease Obstructive uropathy due to nephrolithiasis , left, status post recent ureteral double-J stent placement DISCHARGE MEDICATIONS: See Medication Reconciliation list. DISCHARGE INSTRUCTIONS: Patient was discharged home . Follow up with urologist in one week. I have been assigned to dictate discharge summary for this account. I was not involved in the patient's management. Elo Lopez NP Jun 18, 2018 08:25
== END 2018-06-15 16:10 | disposition home or self-care (01) | DRG 720 ==
LOC: EMR 23:09 → 3E 06-11 00:15 → EDBEDREQ 06-11 00:36 → 3E 06-11 01:17
DX: A41.81 Sepsis due to Enterococcus (principal); E11.65 Type 2 diabetes mellitus with hyperglycemia; E87.1 Hypo-osmolality and hyponatremia; N10 Acute pyelonephritis; D63.8 Anemia in other chronic diseases classified elsewhere; S93.409A Sprain of unspecified ligament of unspecified ankle, initial encounter; N39.0 Urinary tract infection, site not specified; R31.9 Hematuria, unspecified; N13.9 Obstructive and reflux uropathy, unspecified; N13.8 Other obstructive and reflux uropathy; N20.0 Calculus of kidney; Z88.6 Allergy status to analgesic agent; N40.0 Benign prostatic hyperplasia without lower urinary tract symptoms; Z86.718 Personal history of other venous thrombosis and embolism; X58.XXXA Exposure to other specified factors, initial encounter; R60.9 Edema, unspecified; M79.606 Pain in leg, unspecified; Z79.84 Long term (current) use of oral hypoglycemic drugs
CPT/HCPCS: 36415; 76770; 80048; 80202; 81003; 82270; 82607; 82728; 82962; 83036; 83540; 83550; 83605; 84443; 85007; 85025; 85060; 85610; 87040; 87081; 87086; 87181; 96365; 99285; J1815